=== PATIENT | female | born 1945 | race Hispanic/Latino ===

== ENCOUNTER 2022-01-01 05:52 | Day surgery (SDC) | payer OTHER ==
--- NOTE | 2021-12-30 13:23 | RAD REPORT ---
EXAM DESCRIPTION: RAD - Chest Pa And Lat (2 Views) - 12/30/2021 1:08 pm CLINICAL HISTORY: pre op pending mastectomy Chest pain. COMPARISON: No comparisons FINDINGS: The lungs are clear. The heart is upper limit of normal in size. No displaced fractures. IMPRESSION: No acute or concerning finding suspected.
[2021-12-30 13:45] LABS: Potassium 4.2 mmol/L (3.5-5.1)
[2021-12-30 14:05] LABS: Absolute Lymphocytes (CBC) 1.9 K/uL (0.7-4.9); Hematocrit 37.7 % (36.0-45.0); Lymphocytes % 13.6 % (15.3-44.8); MPV 9.7 fL (7.6-11.3); RBC Red Blood Cell Count 4.41 M/uL (3.86-4.86)
[2022-01-01] MEDS ORDERED: NA CHLORIDE 0.9% 1,000 ML ONE ×2 (06:00→12:35)
[2022-01-01] MEDS ORDERED: NA CHLORIDE 0.9% 50 ML ONE (06:00)
[2022-01-01] MEDS ORDERED: CEFAZOLIN SODIUM 1 GM/VIAL ONE (06:00)
[2022-01-01] MEDS ORDERED: BUPIVACAINE 0.25% PF 10 ML VIAL ONE ×2 (07:12→07:23)
[2022-01-01] MEDS ORDERED: dexAMETHasone 10 MG/ML VIAL ONE ×2 (07:13→10:20)
[2022-01-01] MEDS ORDERED: FENTANYL CITR 100 MCG/2 ML ONE (07:13)
[2022-01-01] MEDS ORDERED: LIDOCAINE 1% MPF 5 ML VIAL ONE ×2 (07:13→08:25)
[2022-01-01] MEDS ORDERED: MIDAZOLAM HCL 2 MG/2 ML INJ ONE (07:14)
[2022-01-01] MEDS ORDERED: FENTANYL CITR 250 MCG/5 ML ONE (08:25)
[2022-01-01] MEDS ORDERED: propofoL 200 MG/20 ML VIAL IV ONE (08:25)
[2022-01-01] MEDS ORDERED: ROCURONIUM 50 MG/5 ML VIAL IV ONE (08:25)
[2022-01-01] MEDS ORDERED: METHYLENE BLUE 0.5% 10 ML AMP ONE (08:50)
--- NOTE | 2022-01-01 09:10 | RAD REPORT ---
EXAM DESCRIPTION: NM - Lymphoscintigraphy - 01/01/2022 8:27 am CLINICAL HISTORY: BREAST CA COMPARISON: Chest Pa And Lat (2 Views) dated 12/30/2021 FINDINGS: Preoperative lymphoscintigraphy was performed. Intradermal periareolar injections on the r ight were performed. Approximately 250 uCi of tilmanocept was injected IMPRESSION: Successful preoperative lymphoscintigraphy right breast.
--- NOTE | 2022-01-01 09:20 | RAD REPORT ---
EXAM DESCRIPTION: US - Brst,Preop NL Wire Init w/Guid - 01/01/2022 8:48 am CLINICAL HISTORY: NDL LOC Right breast carcinoma. COMPARISON: No comparisons FINDINGS: Preoperative diagnosis: Right breast carcinoma. Post operative diagnosis: Same. Conscious Sedation: None Fluoroscopy time: None Contrast used: None Estimated blood loss: Minimal The right breast was prepped and draped in the usual sterile fashion. 1% lidocaine was infiltrated in to the subcutaneous tissues for local anesthesia. Real time ultrasound scanning of the right breast d emonstrated 8-9 mm hypoechoic mass 8 o'clock. Under ultrasound guidance, using a Kopan's hookwire, a wire was placed in the lesion. Patient was then sent for surgery. IMPRESSION: Successful ultrasound-guided right breast mass preoperative wire localization.
[2022-01-01] MEDS ORDERED: EPHEDRINE SULF 50 MG/ML VIAL ONE (09:44)
[2022-01-01] MEDS ORDERED: NS 0.9% VIAL 10 ML ONE (09:44)
[2022-01-01] MEDS ORDERED: FUROSEMIDE 20 MG/ 2ML VIAL ONE (10:19)
[2022-01-01] MEDS ORDERED: KETOROLAC 30 MG/ML INJ ONE (10:20)
[2022-01-01] MEDS ORDERED: ONDANSETRON 4 MG/2 ML VIAL ONE (10:57)
[2022-01-01] MEDS ORDERED: Mastisol Adhesive Liq ONE ×2 (10:57→12:24)
[2022-01-01] MEDS ORDERED: GLYCOPYRROLATE 0.2 MG/ML SYR ONE (11:13)
--- NOTE | 2022-01-01 12:26 | P.OP ---
Recreation Program Coordinator: Analilia DUMONT Preoperative diagnosis: Right breast cancer Postoperative diagnosis: Same Primary procedure: Needle localization and right breast mastectomy with sentinel node biopsy Secondary procedure: Left breast simple mastectomy Anesthesia: General Estimated blood loss: 50 cc Specimen: Right sentinel node, right breast and left breast Findings: [place] node was negative for metastatic disease, margins were free Operative Technique: Patient brought to the OR and placed in supine position. General anesthesia beg un. Under sterile condition methylene blue injected on the right nipple areolar complex. The right breast was massaged. And then patient was prepped and draped in usual sterile fashion. [place] node localizing device was utilized to isolate the sentinel node in the right axilla. A 3 cm in the right axilla was made. Deep to the subcutaneous tissue, to lymph nodes with appropriate counts were excised and sent to pathology for frozen section. Bleeding was controlled with cautery, 3-0 silk ties and vascular clips. Frozen section revealed that patient had no evidence of metastatic disease. Then 3-0 chromic was was used to close the axillary wound. An ellipse of skin incision was made over the right breast to include the nipple areolar complex as well as the needle localization wire. Then flaps were created. The superior flap was to the clavicle, the medial flap was to the sternal border, inferior flap was to the insertion of the rectus abdominis muscle and lateral flap was to the anterior border of the latissimus dorsi muscle. All breast tissue was removed off of the pectoralis fascia. Breast was labeled appropriately sent to frozen section for margin check. The frozen s ection revealed margins to be free with the closest margins being 2 cm. Entire wound irrigated and bleeding controlled with cautery, 3-0 chromic and vascular clips. #10 flat KRISTINE drain was placed under the flap and secured with 3-0 nylon. The wound was closed with 2-0 chromic and 3-0 chromic sutures. Sterile dressing was applied and the exact same operation occurred on the left breast with a #10 flat KRISTINE drain as well. Sterile dressing applied and patient awakened taken to recovery in good general condition. Drain(s): KRISTINE drain Transferred to: Recovery Room Condition: Good
[2022-01-01] MEDS ORDERED: HYDROCODONE/APAP 7.5/325 MG TAB PO PRN (12:30)
[2022-01-01] MEDS: HYDROMORPHONE HCL 1 MG/ML INJ ONE ×4 (13:07→13:28)
[2022-01-01] MEDS ORDERED: HYDROCODONE/APAP 7.5/325 MG TAB ONE (14:17)
[2022-01-01 15:31] VITALS: TEMP 97.8
[2022-01-01 15:37] VITALS: BP 110/83; O2SAT 94
== END 2022-01-01 15:00 | disposition home or self-care (01) ==
LOC: OR 05:52
PROVIDERS: ATTEND Surgery
PROC: 0HTT0ZZ Resection of Right Breast, Open Approach (ICD-10-PCS; principal; 2022-01-01 09:00)
PROC: 0HTU0ZZ Resection of Left Breast, Open Approach (ICD-10-PCS; 2022-01-01 09:00)
DX: C50.511 Malignant neoplasm of lower-outer quadrant of right female breast (principal); Z17.0 Estrogen receptor positive status [ER+]; Z20.822 Contact with and (suspected) exposure to COVID-19; I10 Essential (primary) hypertension; E11.9 Type 2 diabetes mellitus without complications
CPT/HCPCS: 93005; 85025; 80048; 36415; 82947 ×2; 88307 ×2; 71046; 19285; 78195; 19307; 19303; U0003; J2704; J2250; J3010 ×2; J1100 ×2; J1170 ×2; J7030 ×2; J2405; J0690; A9520; J1940

== ENCOUNTER 2022-01-31 12:04 | Observation (INO) | payer OTHER ==
--- OUTSIDE RECORDS SUMMARY | 2022-01-31 12:08 | XMS REPORT | Continuity of Care Document ---
:1945 Author Organization [facility] t Address [address] [place] [address] Dr. Lisa. [address] [place] [address] Care Team Providers Name Role Phone [email or web address] Attending Clinician Unavailable Jonah Attending Clinician Unavailable BINDAL Attending Clinician Unavailable Richie_Vikas Attending Clinician Unavailable MOISES Attending Clinician Unavailable URMILA Attending Clinician Unavailable Susan, P Attending Clinician Unavailable Susan, P Attending Clinician Unavailable [email or web address] Admitting Clinician Unavailable Jonah Admitting Clinician Unavailable Hailey Admitting Clinician Unavailable MOISES Admitting Clinician Unavailable URMILA Admitting Clinician Unavailable Payers Payer Name Policy Type Policy Number Effective Date Expiration Date S eric [facility] [id number] (PPO) [facility] [id number] 2016 [facility] (MEDICAID 00:00:00 HMO) [facility] MEDICARE [id number] COMPLETE (MEDICARE REPLACEMENT HMO) [facility] - [id number] [address] [facility] 00:00:00 (MEDICARE REPLACEMENT/ADVANTA GE - HMO) [employer] (MEDICARE [id number] 2021 REPLACEMENT PPO) 00:00:00 [facility] [id number] DH - DUAL (MEDICARE REPLACEMENT HMO) [facility] [id number] 2020 [employer] - 00:00:00 DUAL ELIGIBLE (MEDICARE REPLACEMENT/ADVANTA GE - HMO) [facility] - [id number] MEDICARE SOLUTIONS - MEDICARE COMPLETE (MEDICARE REPLACEMENT PPO) Problems Condition Condition Condition Status Onset Resolution Last Treating Co mments Source Name Details Category Date Date Treatment Clinician Date Malignant Malignant Problem Active [facility] neoplasm Neoplasm 9 da of female of Female 00:00: [facility] [employer] breast Breast 00 al Health Outre[facility] Program Mixed Mixed Problem Active [facility] anxiety Anxiety 9 da and and 00:00: [facility] depressive Depressive 00 al disorder Disorder Health Outreac h Program Chronic Chronic Problem Active [facility] kidney Kidney 9 da disease Disease 00:00: [facility] stage 3 Stage 3 00 al Health [facility] Chronic Chronic Problem Active [facility] low back Low Back 05-28 da pain Pain 00:00: [facility] Type 2 Type 2 Problem Active [facility] diabetes Diabetes - da mellitus Mellitus 00:00: [facility] p without without 00 al complicati Complicati He alth on on Outreac h Program Vitamin D Vitamin D Problem Active [facility] deficiency Deficiency - da 00:00: [facility] Essential Essential Problem Active [facility] hypertensi Hypertensi 1-21 da on on 00:00: [facility] 00 [facility] Hoarse Hoarse Problem Active [facility] Chronic Chronic Problem Active [facility] cough Cough [facility] History of History of Problem Active M [facility] emphysema Emphysema [facility] Allergic Allergic Problem Active [facility] rhinitis Rhinitis [facility] Nasal Nasal Problem Active [facility] obstructio Obstructio da n n Medical Group 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 Medical disease Disease Group 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 Knee [facility] 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 Syndrome da of of Medical shoulder Shoulder Group region Region Allergies, Adverse Reactions, Alerts Allergy Allergy Status Severity Reaction(s) Onset Inactive Treating Comm ents Source Name Type Date Date Clinician Lisinopr Allergy Active [facility] [place] to da substanc Medical e Group PENICILL Allergy Active Anaphylaxis [facility] INS to da substanc Medical e Group penicill Drug Active 9[address] [facility] lisinopr Drug Active 21920 [facility] Social History Smoking Status Start Date Stop Date Source Former Smoker [facility] Medications Ordered Filled Start Stop Current Ordering Indication Dosage Frequency Signature Comments Components Source Medication Medication Date Date Medication? Clinician (SIG) Name Name Alcohol Alcohol No Alcohol [facility] Prep Pads Prep Pads Prep Pads da USE TO TEST USE TO TEST USE TO [facility] BLOOD BLOOD TEST BLOOD al GLUCOSE GLUCOSE GLUCOSE Health FOUR TIMES FOUR TIMES FOUR TIMES Outreac DAILY DAILY DAILY h Program amlodipine amlodipine No amlodipine [facility] 5 mg tablet 5 mg tablet 5 mg d a Take 1 Take 1 tablet [facility] tablet tablet Take 1 al every day every day tablet Hea lth by oral by oral every day Outr eac route. route. by oral h route. Program atorvastati atorvastati No atorvastat [facility] n 20 mg n 20 mg in 20 mg da tablet Take tablet Take tablet [facility] 1 tablet at 1 tablet at Take 1 al bedtime for bedtime for tablet at Health elevated elevated bedtime Outr eac cholesterol cholesterol for h elevated Program cholestero l cetirizine cetirizine No 1 Q1D cetirizine [facility] 10 mg 10 mg 10 mg da tablet Take tablet Take tablet [facility] 1 tablet 1 tablet Take 1 al every day every day tablet Hea lth by oral by oral every day Outr eac route. route. by oral h route. Program cholecalcif cholecalcif No cholecalci [facility] nirav nirav ferol da (vitamin (vitamin (vitamin Epi scop D3) 125 mcg D3) 125 mcg D3) 125 al (5,000 (5,000 mcg (5,000 Healt h unit) unit) unit) Outreac capsule capsule capsule h Take 1 Take 1 Take 1 Program capsule capsule capsule daily for daily for daily for low vitamin low vitamin low D D vitamin D cyclobenzap cyclobenzap No cyclobenza [facility] rine 10 mg rine 10 mg otis 10 da tablet tablet mg tablet [facility] p 1/2-1 1/2-1 1/2-1 al tablet tablet tablet Health twice a day twice a day twice a Outreac for muscle for muscle day for h relaxant relaxant muscle Progr am relaxant Dexilant 60 Dexilant 60 No Dexilant [facility] mg capsule, mg capsule, 60 mg da delayed delayed capsule, [facility] release release delayed al Take 1 Take 1 release Health capsule capsule Take 1 Outreac every day every day capsule h by oral by oral every day Prog tami route. route. by oral route. Easy Easy No Easy [facility] Comfort Comfort Comfort da Insulin Insulin Insulin [facility] p Syringe 1 Syringe 1 Syringe 1 al mL 31 gauge mL 31 gauge mL 31 Health x 5/16" USE x 5/16" USE gauge x Outreac TO INJECT TO INJECT 16" USE h INSULIN INSULIN TO INJECT Prog tami THREE TIMES THREE TIMES INSULIN DAILY DAILY THREE TIMES DAILY Easy Touch Easy Touch No Easy Touch [facility] 31 gauge x 31 gauge x 31 gauge x da 5/16" 5/16" 5/16" [facility] needle needle needle al Health Outreac h Program Easy Touch Easy Touch No Easy Touch [facility] Insulin Insulin Insulin da Syringe 0.3 Syringe 0.3 Syringe [facility] mL 30 gauge mL 30 gauge 0.3 mL 30 al x 5/16" x 5/16" gauge x Health INJECT INJECT 16" Outreac SUBCUTANEOU SUBCUTANEOU INJECT h SLY three SLY three SUBCUTANEO Program times a day times a day USLY three per sliding per sliding times a scale scale day per sliding scale gabapentin gabapentin No gabapentin [facility] 300 mg 300 mg 300 mg da capsule capsule capsule [facility] p Take 1 Take 1 Take 1 al capsule 3 capsule 3 capsule 3 Health times a day times a day times a Outreac by oral by oral day by h route. route. oral Program route. Humulin R Humulin R No Humulin R [facility] Regular Regular Regular da U-100 U-100 U-100 [facility] Insulin 100 Insulin 100 Insulin al unit/mL unit/mL 100 Health injection injection unit/mL Ou treac solution solution injection h Take 15 Take 15 solution Progr am units 3 units 3 Take 15 times a day times a day units 3 by by times a injection injection day by route. route. injection route. hydrocodone hydrocodone No hydrocodon [facility] 7.5 7.5 e 7.5 da mg-acetamin mg-acetamin mg-acetami [facility] ophen 325 ophen 325 nophen 325 al mg tablet mg tablet mg tablet Health TAKE 1 TAKE 1 TAKE 1 Outreac TABLET BY TABLET BY TABLET BY h MOUTH EVERY MOUTH EVERY MOUTH Program 6 HOURS 6 HOURS EVERY 6 NEEDED FOR NEEDED FOR HOURS PAIN PAIN NEEDED FOR PAIN Infinity Infinity No Infinity [facility] Meter Kit Meter Kit Meter Kit da USE TO TEST USE TO TEST USE TO [facility] BLOOD BLOOD TEST BLOOD al GLUCOSE GLUCOSE GLUCOSE Health Outre h Program isosorbide isosorbide No isosorbide [facility] mononitrate mononitrate mononitrat da ER 30 mg ER 30 mg e ER 30 mg E [facility] tablet,exte tablet,exte tablet,ext al nded nded ended Health release 24 release 24 release 24 Outreac hr Take 1 hr Take 1 hr Take 1 h tablet tablet tablet Program every day every day every day by oral by oral by oral route. route. route. lancets 30 lancets 30 No lancets 30 [facility] gauge USE gauge USE gauge USE da TO TEST TO TEST TO TEST [facility] BLOOD BLOOD BLOOD al GLUCOSE GLUCOSE GLUCOSE [facility] FOUR TIMES FOUR TIMES FOUR TIMES Outreac DAILY DAILY DAILY h Program lancing lancing No lancing [facility] device USE device USE device USE da WITH WITH WITH [facility] LANCETS TO LANCETS TO LANCETS TO al TEST BLOOD TEST BLOOD TEST BLOOD Health GLUCOSE GLUCOSE GLUCOSE Outrea c h Program levothyroxi levothyroxi No 1 Q1D levothyrox [facility] ne 100 mcg ne 100 mcg ine 100 da tablet Take tablet Take mcg tablet [facility] 1 tablet 1 tablet Take 1 al every day every day tablet Hea lth by oral by oral every day Outr eac route. route. by oral h route. Program levothyroxi levothyroxi No levothyrox [facility] ne 50 mcg ne 50 mcg ine 50 mcg da tablet tablet tablet [facility] Outreac h Program memantine memantine No memantine [facility] Once daily Once daily Once daily da [facility] Outreac h Program Accu-Chek Accu-Chek No Accu-Chek [facility] FastClix FastClix FastClix da Lancing Lancing Lancing Medica l Device Device Device Group metformin metformin No metformin [facility] 500 mg 500 mg 500 mg da tablet Take tablet Take tablet [facility] 1 tablet 1 tablet Take 1 al every day every day tablet Hea lth by oral by oral every day Outr eac route. route. by oral h route. Program Accu-Chek Accu-Chek No Accu-Chek [facility] Softclix Softclix Softclix da Lancets Lancets Lancets Medica l Group metoprolol metoprolol No metoprolol [facility] tartrate 50 tartrate 50 tartrate da mg tablet mg tablet 50 mg [facility] [employer] Take 1 Take 1 tablet al tablet tablet Take 1 Health every day every day tablet Out reac by oral by oral every day h route. route. by oral Program route. acetaminoph acetaminoph No acetaminop [facility] en 300 en 300 hen 300 da mg-codeine mg-codeine mg-codeine Medical 30 mg 30 mg 30 mg Group tablet tablet tablet montelukast montelukast No montelukas [facility] 10 mg 10 mg t 10 mg da tablet Take tablet Take tablet [facility] 1 tablet 1 tablet Take 1 al every day every day tablet Hea lth by oral by oral every day Outr eac route. route. by oral h route. Program Advair HFA Advair HFA No Advair HFA [facility] 115 mcg-21 115 mcg-21 115 mcg-21 da mcg/actuati mcg/actuati mcg/actuat Medical on aerosol on aerosol ion Lesa up inhaler inhaler aerosol inhaler OneTouch OneTouch No OneTouch [facility] Ultra Blue Ultra Blue Ultra Blue da Test Strip Test Strip Test Strip [facility] USE TO TEST USE TO TEST USE TO al BLOOD BLOOD TEST BLOOD Health GLUCOSE GLUCOSE GLUCOSE Outrea c FOUR TIMES FOUR TIMES FOUR TIMES h DAILY DAILY DAILY Program Advair HFA Advair HFA No Advair HFA [facility] 230 mcg-21 230 mcg-21 230 mcg-21 da mcg/actuati mcg/actuati mcg/actuat Medical on aerosol on aerosol ion Lesa up inhaler inhaler aerosol inhaler oxybutynin oxybutynin No 1 Q1D oxybutynin [facility] chloride 5 chloride 5 chloride 5 da mg tablet mg tablet mg tablet [facility] Take 1 Take 1 Take 1 al tablet tablet tablet Health every day every day every day Outreac by oral by oral by oral h route. route. route. Program albuterol albuterol No albuterol [facility] sulfate sulfate sulfate da 0.63 mg/3 0.63 mg/3 0.63 mg/3 Medical mL solution mL solution mL G roup for for solution nebulizatio nebulizatio for n n nebulizati on oxybutynin oxybutynin No oxybutynin [facility] chloride ER chloride ER chloride da 5 mg 5 mg ER 5 mg [facility] tablet,exte tablet,exte tablet,ext al nded nded ended Health release 24 release 24 release 24 Outreac hr hr hr h Program albuterol albuterol No albuterol [facility] sulfate sulfate sulfate da 1.25 mg/3 1.25 mg/3 1.25 mg/3 Medical mL solution mL solution mL G roup for for solution nebulizatio nebulizatio for n n nebulizati on pantoprazol pantoprazol No pantoprazo [facility] e 40 mg e 40 mg le 40 mg da tablet,nadeem tablet,nadeem tablet,del [facility] yed release yed release ayed a l Take 1 Take 1 release Health tablet by tablet by Take 1 Out reac oral route oral route tablet by h as needed. as needed. oral route Program as needed. albuterol albuterol No albuterol [facility] sulfate 2.5 sulfate 2.5 sulfate da mg/3 mL mg/3 mL 2.5 mg/3 Medic al (0.083 %) (0.083 %) mL (0.083 Group solution solution %) for for solution nebulizatio nebulizatio for n n nebulizati on pharmacist pharmacist No pharmacist [facility] choice choice choice da alcoholprep alcoholprep alcoholpre [facility] pads pads pads pads p pads al pads Health Outreac h Program alcohol alcohol No alcohol [facility] prep pad prep pad prep pad da Medical Group pramipexole pramipexole No pramipexol [facility] 0.5 mg 0.5 mg e 0.5 mg da tablet Take tablet Take tablet [facility] 1 tablet 1 tablet Take 1 al every day every day tablet Hea lth by oral by oral every day Outr eac route at route at by oral h bedtime. bedtime. route at Pro gram bedtime. Alcohol Alcohol No Alcohol [facility] Prep Pads Prep Pads Prep Pads da USE TO TEST USE TO TEST USE TO Medical BLOOD BLOOD TEST BLOOD Group GLUCOSE GLUCOSE GLUCOSE FOUR TIMES FOUR TIMES FOUR TIMES DAILY DAILY DAILY ropinirole ropinirole No ropinirole [facility] 0.25 mg 0.25 mg 0.25 mg da tablet tablet tablet [facility] al Health Outreac h Program alendronate alendronate No alendronat [facility] 70 mg 70 mg e 70 mg da tablet tablet tablet Medical Group sertraline sertraline No 1 Q1D sertraline [facility] 100 mg 100 mg 100 mg da tablet Take tablet Take tablet [facility] 1 tablet 1 tablet Take 1 al every day every day tablet Hea lth by oral by oral every day Outr eac route. route. by oral h route. Program amlodipine amlodipine No amlodipine [facility] 5 mg tablet 5 mg tablet 5 mg d a TAKE 1 TAKE 1 tablet Medical TABLET BY TABLET BY TAKE 1 Lesa up MOUTH EVERY MOUTH EVERY TABLET BY DAY DAY MOUTH EVERY DAY Spiriva Spiriva No Spiriva [facility] Respimat 1 Respimat 1 Respimat 1 da inhalation inhalation inhalation [facility] twice a day twice a day twice a al day Health Outreac h Program atorvastati atorvastati No atorvastat [facility] n 20 mg n 20 mg in 20 mg da tablet tablet tablet Medical Group Spiriva Spiriva No Spiriva [facility] [facility] Respimat Respimat Respimat da 2.5 2.5 2.5 [facility] mcg/actuati mcg/actuati mcg/actuat al on solution on solution ion H ealth for for solution Outreac inhalation inhalation for h inhalation Program azithromyci azithromyci No azithromyc [place] n 250 mg n 250 mg in 250 mg da tablet tablet tablet Medical Group Toujeo Max Toujeo Max No 90unit( Q1D Toujeo Max [facility] U-300 U-300 s) U-300 da SoloStar SoloStar SoloStar Epi scop 300 unit/mL 300 unit/mL 300 a l (3 mL) (3 mL) unit/mL (3 Healt h subcutaneou subcutaneou mL) O [facility] s insulin s insulin subcutaneo h pen Inject pen Inject us insulin Program 90 units 90 units pen Inject every day every day 90 units by by every day subcutaneou subcutaneou by s route in s route in subcutaneo the the us route morning. morning. in the morning. BD Veo BD Veo No BD Veo [facility] Insulin Insulin Insulin da Syringe Syringe Syringe Medica l Ultra-Fine Ultra-Fine Ultra-Fine Group 1/2 mL 31 1/2 mL 31 1/2 mL 31 gauge x gauge x gauge x " " " Madison Wallace No Madison [facility] SoloStar SoloStar SoloStar da U-300 U-300 U-300 [facility] Insulin 300 Insulin 300 Insulin al unit/mL unit/mL 300 Health (1.5 mL) (1.5 mL) unit/mL Outr eac subcutaneou subcutaneou (1.5 mL) h s pen s pen subcutaneo Program us pen benzonatate benzonatate No benzonatat [facility] 100 mg 100 mg e 100 mg da capsule capsule capsule Medica l Take 1 Take 1 Take 1 Group capsule 3 capsule 3 capsule 3 times a day times a day times a by oral by oral day by route. route. oral route. Tradjenta 5 Tradjenta 5 No Tradjenta [facility] mg tablet mg tablet 5 mg da Take 1 Take 1 tablet [facility] tablet tablet Take 1 al every day every day tablet Hea lth by oral by oral every day Outr eac route. route. by oral h route. Program cefdinir cefdinir No cefdinir [facility] 300 mg 300 mg 300 mg da capsule capsule capsule Medica l Group tramadol 50 tramadol 50 No tramadol [facility] mg tablet mg tablet 50 mg da TAKE 1 TAKE 1 tablet [facility] TABLET BY TABLET BY TAKE 1 al MOUTH EVERY MOUTH EVERY TABLET BY [facility] 12 HOURS 12 HOURS MOUTH Outreac NEEDED FOR NEEDED FOR EVERY 12 h PAIN PAIN HOURS Program NEEDED FOR PAIN cetirizine cetirizine No cetirizine [facility] 10 mg 10 mg 10 mg da tablet tablet tablet Medical Group trazodone trazodone No trazodone [facility] 100 mg 100 mg 100 mg da tablet tablet tablet [facility] al Health Outreac h Program clindamycin clindamycin No clindamyci [facility] HCl 300 mg HCl 300 mg n HCl 300 da capsule capsule mg capsule Med ical Group Victoza Victoza No Victoza [facility] 3-Yury 0.6 3-Yury 0.6 3-Yury 0.6 da mg/0.1 mL mg/0.1 mL mg/0.1 mL [facility] (18 mg/3 (18 mg/3 (18 mg/3 al mL) mL) mL) Health subcutaneou subcutaneou subcutaneo Outreac s pen s pen us pen h injector injector injector Pro gram comfort ez comfort ez No comfort ez [facility] mis mis mis da [id number] Medica l Group cyclobenzap cyclobenzap No cyclobenza [place] rine 10 mg rine 10 mg otis 10 da tablet Take tablet Take mg tablet Medical 1 tablet 3 1 tablet 3 Take 1 G roup times a day times a day tablet 3 by oral by oral times a route. route. day by oral route. Dexilant 60 Dexilant 60 No Dexilant [facility] mg capsule, mg capsule, 60 mg da delayed delayed capsule, Medic al release release delayed Group release donepezil donepezil No donepezil [facility] 10 mg 10 mg 10 mg da tablet tablet tablet Medical Group donepezil 5 donepezil 5 No donepezil [facility] mg tablet mg tablet 5 mg da tablet Medical Group Easy Easy No Easy [facility] Comfort Comfort Comfort da Insulin Insulin Insulin Medica l Syringe 1 Syringe 1 Syringe 1 Group mL 31 gauge mL 31 gauge mL 31 x 5/16" USE x 5/16" USE gauge x TO INJECT TO INJECT 516" USE INSULIN INSULIN TO INJECT THREE TIMES THREE TIMES INSULIN DAILY DAILY THREE TIMES DAILY Easy Touch Easy Touch No Easy Touch [facility] 31 gauge x 31 gauge x 31 gauge x da 5/16" 5/16" 5/16" Medical needle needle needle Group Easy Touch Easy Touch No Easy Touch [facility] Insulin Insulin Insulin da Syringe 0.3 Syringe 0.3 Syringe Medical mL 30 gauge mL 30 gauge 0.3 mL 30 Group x 5/16" x 5/16" gauge x INJECT INJECT 5/16" SUBCUTANEOU SUBCUTANEOU INJECT SLY three SLY three SUBCUTANEO times a day times a day USLY three per sliding per sliding times a scale scale day per sliding scale ergocalcife ergocalcife No ergocalcif [place] rol rol nirav da (vitamin (vitamin (vitamin Med ical D2) 1,250 D2) 1,250 D2) 1,250 Group mcg (50,000 mcg (50,000 mcg unit) unit) (50,000 capsule capsule unit) capsule fenofibrate fenofibrate No fenofibrat [facility] 160 mg 160 mg e 160 mg da tablet tablet tablet Medical Group fluticasone fluticasone No fluticason [facility] 500 500 e 500 da mcg-salmete mcg-salmete mcg-salmet Medical rol 50 rol 50 nirav 50 Group mcg/dose mcg/dose mcg/dose blistr blistr blistr powdr for powdr for powdr for inhalation inhalation inhalation fluticasone fluticasone No fluticason [facility] propionate propionate e da 50 50 propionate Medical mcg/actuati mcg/actuati 50 G roup on nasal on nasal mcg/actuat spray,suspe spray,suspe ion nasal nsion nsion spray,susp ension furosemide furosemide No furosemide [facility] 40 mg 40 mg 40 mg da tablet tablet tablet Medical Group gabapentin gabapentin No gabapentin [place] 100 mg 100 mg 100 mg da capsule capsule capsule Medica l Group gabapentin gabapentin No gabapentin [place] 300 mg 300 mg 300 mg da capsule capsule capsule Medica l Group Humulin R Humulin R No Humulin R [place] Regular Regular Regular da U-100 U-100 U-100 Medical Insulin 100 Insulin 100 Insulin Group unit/mL unit/mL 100 injection injection unit/mL solution solution injection solution hydrocortis hydrocortis No hydrocorti [place] one 2.5 % one 2.5 % sone 2.5 % da lotion lotion lotion Medical Group hydrocortis hydrocortis No hydrocorti [place] one one sone da valerate valerate valerate Med ical 0.2 % 0.2 % 0.2 % Group topical topical topical cream cream cream ibuprofen ibuprofen No ibuprofen [facility] 400 mg 400 mg 400 mg da tablet tablet tablet Medical Group ibuprofen ibuprofen No ibuprofen [facility] 800 mg 800 mg 800 mg da tablet tablet tablet Medical Group Infinity Infinity No Infinity [facility] Test strips Test strips Test d a USE TO TEST USE TO TEST strips USE Medical BLOOD BLOOD TO TEST Group GLUCOSE GLUCOSE BLOOD FOUR TIMES FOUR TIMES GLUCOSE DAILY DAILY FOUR TIMES DAILY ipratropium ipratropium No ipratropiu [facility] bromide bromide m bromide da 0.02 % 0.02 % 0.02 % Medical solution solution solution Lesa up for for for inhalation inhalation inhalation isosorbide isosorbide No isosorbide [facility] mononitrate mononitrate mononitrat da ER 30 mg ER 30 mg e ER 30 mg M edical tablet,exte tablet,exte tablet,ext Group nded nded ended release 24 release 24 release 24 hr TAKE 1 hr TAKE 1 hr TAKE 1 TABLET BY TABLET BY TABLET BY MOUTH EVERY MOUTH EVERY MOUTH DAY DAY EVERY DAY Janumet 50 Janumet 50 No Janumet 50 [facility] mg-1,000 mg mg-1,000 mg mg-1,000 da tablet tablet mg tablet Medica l Group Januvia 50 Januvia 50 No Januvia 50 [facility] mg tablet mg tablet mg tablet da Medical Group ketoconazol ketoconazol No ketoconazo [place] e 2 % e 2 % le 2 % da shampoo shampoo shampoo Medica l Group lancets 30 lancets 30 No lancets 30 [facility] gauge USE gauge USE gauge USE da TO TEST TO TEST TO TEST Medica l BLOOD BLOOD BLOOD Group GLUCOSE GLUCOSE GLUCOSE FOUR TIMES FOUR TIMES FOUR TIMES DAILY DAILY DAILY Lantus Lantus No Lantus [place] Solostar Solostar Solostar da U-100 U-100 U-100 Medical Insulin 100 Insulin 100 Insulin Group unit/mL (3 unit/mL (3 100 mL) mL) unit/mL (3 subcutaneou subcutaneou mL) s pen s pen subcutaneo us pen levofloxaci levofloxaci No levofloxac [place] n 500 mg n 500 mg in 500 mg da tablet tablet tablet Medical Group levofloxaci levofloxaci No levofloxac [place] n 750 mg n 750 mg in 750 mg da tablet tablet tablet Medical Group levothyroxi levothyroxi No levothyrox [place] ne 100 mcg ne 100 mcg ine 100 da tablet tablet mcg tablet Medic al Group levothyroxi levothyroxi No levothyrox [place] ne 50 mcg ne 50 mcg ine 50 mcg da tablet TAKE tablet TAKE tablet Medical (1) TABLET (1) TABLET TAKE (1) Group BY MOUTH BY MOUTH TABLET BY ONCE DAILY ONCE DAILY MOUTH ONCE DAILY lidocaine 5 lidocaine 5 No lidocaine [facility] % topical % topical 5 % da ointment ointment topical Medi tyree ointment Group lidocaine-p lidocaine-p No lidocaine- [place] rilocaine rilocaine prilocaine da 2.5 %-2.5 % 2.5 %-2.5 % 2.5 %-2.5 Medical topical topical % topical Grou p cream cream cream loratadine loratadine No loratadine [facility] 10 mg 10 mg 10 mg da tablet tablet tablet Medical Group Lyrica 50 Lyrica 50 No Lyrica 50 [facility] mg capsule mg capsule mg capsule da Medical Group meclizine meclizine No meclizine [place] 25 mg 25 mg 25 mg da tablet tablet tablet Medical Group meloxicam meloxicam No meloxicam [facility] 7.5 mg 7.5 mg 7.5 mg da tablet tablet tablet Medical Group memantine memantine No memantine [facility] 10 mg 10 mg 10 mg da tablet tablet tablet Medical Group metformin metformin No metformin [facility] 500 mg 500 mg 500 mg da tablet tablet tablet Medical Group methylpredn methylpredn No methylpred [place] isolone 4 isolone 4 nisolone 4 da mg tablets mg tablets mg tablets Medical in a dose in a dose in a dose Group pack pack pack metoprolol metoprolol No metoprolol [facility] tartrate 50 tartrate 50 tartrate da mg tablet mg tablet 50 mg Medi tyree TAKE ONE TAKE ONE tablet Group (1) TABLET (1) TABLET TAKE ONE BY MOUTH BY MOUTH (1) TABLET TWICE DAILY TWICE DAILY BY MOUTH TWICE DAILY montelukast montelukast No montelukas [place] 10 mg 10 mg t 10 mg da tablet tablet tablet Medical Group Narcan 4 Narcan 4 No Narcan 4 [facility] mg/actuatio mg/actuatio mg/actuati da n nasal n nasal on nasal Medic al spray spray spray Group ADMINISTER ADMINISTER ADMINISTER A SINGLE A SINGLE A SINGLE SPRAY SPRAY SPRAY INTRANASALL INTRANASALL INTRANASAL Y INTO ONE Y INTO ONE LY INTO NOSTRIL. NOSTRIL. ONE CALL 911. CALL 911. NOSTRIL. MAY REPEAT JANUARY REPEAT CALL 911. X 1. X 1. JANUARY REPEAT X 1. Nexium 40 Nexium 40 No Nexium 40 [facility] mg mg mg da capsule,del capsule,del capsule,de Medical ayed ayed layed Group release release release Novolog Novolog No Novolog [facility] Flexpen Flexpen Flexpen da U-100 U-100 U-100 Medical Insulin Insulin Insulin Group aspart 100 aspart 100 aspart 100 unit/mL (3 unit/mL (3 unit/mL (3 mL) mL) mL) subcutaneou subcutaneou subcutaneo s s us Nystop Nystop No Nystop [place] 100,000 100,000 100,000 da unit/gram unit/gram unit/gram Medical topical topical topical Group powder powder powder omega-3 omega-3 No omega-3 [facility] acid ethyl acid ethyl acid ethyl da esters 1 esters 1 esters 1 Med ical gram gram gram Group capsule capsule capsule ondansetron ondansetron No ondansetro [place] HCl 4 mg HCl 4 mg n HCl 4 mg d a tablet tablet tablet Medical Group OneTouch OneTouch No OneTouch [place] Ultra Blue Ultra Blue Ultra Blue da Test Strip Test Strip Test Strip Medical Group OneTouch OneTouch No OneTouch [place] Ultra Ultra Ultra da Control Control Control Medica l solution solution solution Lesa up OneTouch OneTouch No OneTouch [place] UltraMini UltraMini UltraMini da kit kit kit Medical Group OneTouch OneTouch No OneTouch [place] [facility] Verio Meter Verio Meter Verio da Meter Medical Group oxiconazole oxiconazole No oxiconazol [place] 1 % topical 1 % topical e 1 % da cream cream topical Medical cream Group oxybutynin oxybutynin No oxybutynin [place] chloride 5 chloride 5 chloride 5 da mg tablet mg tablet mg tablet Medical Group oxybutynin oxybutynin No oxybutynin [place] chloride ER chloride ER chloride da 10 mg 10 mg ER 10 mg Medical tablet,exte tablet,exte tablet,ext Group nded nded ended release 24 release 24 release 24 hr hr hr oxybutynin oxybutynin No oxybutynin [place] chloride ER chloride ER chloride da 5 mg 5 mg ER 5 mg Medical tablet,exte tablet,exte tablet,ext Group nded nded ended release 24 release 24 release 24 hr hr hr pantoprazol pantoprazol No pantoprazo [place] e 40 mg e 40 mg le 40 mg da tablet,nadeem tablet,nadeem tablet,del Medical yed release yed release ayed G roup TAKE 1 TAKE 1 release TABLET BY TABLET BY TAKE 1 MOUTH EVERY MOUTH EVERY TABLET BY DAY BEFORE DAY BEFORE MOUTH BREAKFAST BREAKFAST EVERY DAY *DO NOT *DO NOT BEFORE CRUSH OR CRUSH OR BREAKFAST CHEW OR CHEW OR *DO NOT SPLIT* SPLIT* CRUSH OR CHEW OR SPLIT* pen needles pen needles No pen M [facility] mis mis needles da [id number] mis Medical [id number] Group pharmacist pharmacist No pharmacist [place] choice choice choice da alcoholprep alcoholprep alcoholpre Medical pads pads pads pads p pads Group pads pharmacist pharmacist No pharmacist [place] choice choice choice da ultra thin ultra thin ultra thin Medical lancet s lancet s lancet s Lesa up 31g misc 31g misc 31g misc pramipexole pramipexole No pramipexol [facility] 0.5 mg 0.5 mg e 0.5 mg da tablet tablet tablet Medical Group prednisone prednisone No prednisone [place] 20 mg 20 mg 20 mg da tablet tablet tablet Medical Group pregabalin pregabalin No pregabalin [facility] 100 mg 100 mg 100 mg da capsule capsule capsule Medica l Take 1 Take 1 Take 1 Group capsule 3 capsule 3 capsule 3 times a day times a day times a by oral by oral day by route. route. oral route. Prevnar 13 Prevnar 13 No Prevnar 13 [place] (PF) 0.5 mL (PF) 0.5 mL (PF) 0.5 da intramuscul intramuscul mL M edical ar syringe ar syringe intramuscu Group lar syringe Proventil Proventil No Proventil [place] HFA 90 HFA 90 HFA 90 da mcg/actuati mcg/actuati mcg/actuat Medical on aerosol on aerosol ion Lesa up inhaler inhaler aerosol inhaler ropinirole ropinirole No ropinirole [place] 0.25 mg 0.25 mg 0.25 mg da tablet tablet tablet Medical Group sertraline sertraline No sertraline [place] 100 mg 100 mg 100 mg da tablet tablet tablet Medical Group simple diag simple diag No simple [place] mis mis diag mis da lancing lancing lancing Medica l Group simple simple No simple [facility] diagnostics diagnostics diagnostic da lancing lancing s lancing Medi tyree device device device Group misc misc misc simvastatin simvastatin No simvastati [place] 10 mg 10 mg n 10 mg da tablet tablet tablet Medical Group Spiriva Spiriva No Spiriva [place] [facility] Respimat Respimat Respimat da 2.5 2.5 2.5 Medical mcg/actuati mcg/actuati mcg/actuat Group on solution on solution ion for for solution inhalation inhalation for inhalation tizanidine tizanidine No tizanidine [place] 4 mg tablet 4 mg tablet 4 mg d a tablet Medical Group Toubianca Hansenubianca No Toubianca [place] SoloStar SoloStar SoloStar da U-300 U-300 U-300 Medical Insulin 300 Insulin 300 Insulin Group unit/mL unit/mL 300 (1.5 mL) (1.5 mL) unit/mL subcutaneou subcutaneou (1.5 mL) s pen s pen subcutaneo us pen Tradjenta 5 Tradjenta 5 No Tradjenta [place] mg tablet mg tablet 5 mg da tablet Medical Group tramadol 50 tramadol 50 No tramadol [place] mg tablet mg tablet 50 mg da TAKE 1 TAKE 1 tablet Medical TABLET BY TABLET BY TAKE 1 Lesa up MOUTH EVERY MOUTH EVERY TABLET BY 12 HOURS 12 HOURS MOUTH NEEDED FOR NEEDED FOR EVERY 12 PAIN PAIN HOURS NEEDED FOR PAIN trazodone trazodone No trazodone [place] 100 mg 100 mg 100 mg da tablet TAKE tablet TAKE tablet Medical 1 TABLET BY 1 TABLET BY TAKE 1 Group MOUTH MOUTH TABLET BY NIGHTLY NIGHTLY MOUTH NIGHTLY trazodone trazodone No trazodone [place] 50 mg 50 mg 50 mg da tablet tablet tablet Medical Group Trelegy Trelegy No Trelegy [place] [facility] Ellipta 200 Ellipta 200 Ellipta da mcg-62.5 mcg-62.5 200 Medical mcg-25 mcg mcg-25 mcg mcg-62.5 Group powder for powder for mcg-25 mcg inhalation inhalation powder for inhalation ultra thin ultra thin No ultra thin [place] mis 31g mis 31g mis 31g da Medical Group Unifine Unifine No Unifine [facility] [facility] Pentips 32 Pentips 32 Pentips 32 da gauge x gauge x gauge x Medica l " " " Group needle needle needle valacyclovi valacyclovi No valacyclov [place] r 1 gram r 1 gram ir 1 gram da tablet tablet tablet Medical Group Victoza Victoza No Victoza [place] 3-Yury 0.6 3-Yury 0.6 3-Yury 0.6 da mg/0.1 mL mg/0.1 mL mg/0.1 mL Medical (18 mg/3 (18 mg/3 (18 mg/3 Lesa up mL) mL) mL) subcutaneou subcutaneou subcutaneo s pen s pen us pen injector injector injector Immunizations Ordered Immunization Filled Immunization Date Status Commen ts Source Name Name zoster live zoster live 2019-10-20 Completed [facility]:00:[facility] Vital Signs Vital Name Observation Time Observation Value Comments Source BP Diastolic 2021-12-29 00:00:00 80 mm[Hg] [facility] Height 2021-12-29 00:00:00 66 [in_i] [facility] BMI (Body Mass 2021-12-29 00:00:00 31.6 kg/m2 [facility] Medical Index) Group BP Systolic 2021-12-29 00:00:00 130 mm[Hg] [facility] Body Weight 2021-12-29 00:00:00 196 [lb_av] [facility] BP Diastolic 2021-07-07 00:00:00 80 mm[Hg] [facility] Height 2021-07-07 00:00:00 66 [in_i] [facility] BMI (Body Mass 2021-07-07 00:00:00 31.5 kg/m2 [facility] Medical Index) Group BP Systolic 2021-07-07 00:00:00 130 mm[Hg] [facility] Body Weight 2021-07-07 00:00:00 195 [lb_av] [facility] BP Diastolic 2021-01-13 00:00:00 80 mm[Hg] [facility] Height 2021-01-13 00:00:00 66 [in_i] [facility] BMI (Body Mass 2021-01-13 00:00:00 31.5 kg/m2 [facility] Medical Index) Group BP Systolic 2021-01-13 00:00:00 130 mm[Hg] [facility] Body Weight 2021-01-13 00:00:00 195 [lb_av] [facility] BP Diastolic 2020-06-12 00:00:00 76 mm[Hg] [facility] Height 2020-06-12 00:00:00 66 [in_i] [facility] BMI (Body Mass 2020-06-12 00:00:00 30.8 kg/m2 [facility] [employer] [facility] Index) [facility] BP Systolic 2020-06-12 00:00:00 118 mm[Hg] [facility] Body Weight 2020-06-12 00:00:00 3052.8 [oz_av] [facility] BP Diastolic 2020-05-27 00:00:00 90 mm[Hg] [facility] Height 2020-05-27 00:00:00 66 [in_i] [facility] BMI (Body Mass 2020-05-27 00:00:00 30.6 kg/m2 [facility] [employer] [facility] Index) [facility] BP Systolic 2020-05-27 00:00:00 146 mm[Hg] [facility] Body Weight 2020-05-27 00:00:00 3036.8 [oz_av] [facility] [employer] [facility] Height/Length 2021-10-13 12:36:56 170.18 cm Measured Weight Dosing 2021-10-13 12:36:56 83.914 kg Procedures Procedure Date / Time Performing Clinician Source Performed XR, knee, 1 or 2 view 2021-01-13 00:00:00 [facility] XR, shoulder, 2 or more 2021-01-13 00:00:00 [facility] unlisted imaging order 2020-06-12 00:00:00 Addisonag orda [facility] MRI, lumbar spine, w/o 2020-05-28 00:00:00 Hakan freeman [facility] Colonoscopy W/lesion 2017-09-08 00:00:00 Estephania [facility] Egd Biopsy 2017-09-08 00:00:00 Rosanna Me dical Single/multiple Group Excision of Colon [facility] Total Hysterectomy [facility] Lumpectomy of Breast [facility] Colonoscopy W/lesion [facility] Knee Arthroscopy/surgery [facility] Encounters Start End Encounter Admission Attending Care Care Encounter Source Date/Time Date/Time Type Type Clinicians Facility Department ID 2022-01-25 2022-01-25 Outpatient GC_WPSA_Awa PRIV PRIV [id number] NPI:[id number] 12:39:00 12:39:00 n_R [id number] 2021-12-29 2021-12-29 Outpatient cMcDonald [facility] [place] 02:39:00 02:39:00 0405 [facility] 2021-12-29 2021-12-29 Outpatient cMcDonald [facility] [place] 02:39:00 02:39:00 0412 [facility] 2021-12-29 2021-12-29 Outpatient cMcDonald [facility] [place] 02:39:00 02:39:00 0428 [facility] 2021-12-29 [facility] [place] [id number] 00:00:00 00:00:00 Discovery otto Black MD: [address] [facility] [address], [place] [address] , Ph. 2021-12-28 2021-12-28 Outpatient GC_WPSA_Awa PRIV PRIV [id number] NPI:[id number] 12:55:00 12:55:00 n_R [id number] 2021-11-30 2021-11-30 Outpatient GC_WPSA_Awa PRIV PRIV [id number] NPI:[id number] 01:03:00 01:03:00 n_R [id number] 2021-09-11 2021-09-11 Outpatient cMcDonald [facility] [place] 02:10:00 02:10:00 1223 [facility] 2021-09-11 2021-09-11 Outpatient cMcDonald [facility] [place] 02:10:00 02:10:00 0322 [facility] 2021-08-14 2021-08-14 Outpatient cMcDonald [facility] [place] 04:04:00 04:04:00 1119 [facility] 2021-08-03 2021-08-03 Outpatient BINDAL, [facility] [id number] [address] [place] 00:00:00 00:00:00 MELANI [address] 2021-08-03 2021-08-03 Outpatient BINDAL, [facility] [id number] [address] [place] 00:00:00 00:00:00 MELANI [address] 2021-08-03 2021-08-03 Outpatient BINDAL, [facility] [id number] [address] [place] 00:00:00 00:00:00 MELANI [address] 2021-07-07 2021-07-07 Outpatient cMcDonald [facility] [place] 01:05:00 01:05:00 1012 [facility] 2021-07-07 2021-07-07 Outpatient cMcDonald [facility] [place] 01:05:00 01:05:00 1019 [facility] 2021-07-07 2021-07-07 [facility] [place] - [id number] [facility] 00:00:00 00:00:00 Discovery otto Black MD: [address] [place] [address] [address], [place] [address] , Ph. 2021-06-19 2021-06-19 Outpatient BINDAL, [facility] [id number] [address] [place] 00:00:00 00:00:00 MELANI [address] 2021-01-13 2021-01-13 Outpatient cMcDonald [facility] [place] 04:57:00 04:57:00 0420 [facility] 2021-01-13 2021-01-13 Outpatient cMcDonald [facility] [place] 04:57:00 04:57:00 0425 [facility] 2021-01-13 2021-01-13 [facility] [place] - [id number] [facility] 00:00:00 00:00:00 Discovery otto Black MD: [address] [place] [address] [address], [place] [address] , Ph. 2020-11-07 2020-11-07 Outpatient Young_J MMG MMG [id number] [place] 10:32:00 10:32:00 0212 [facility] 2020-11-07 2020-11-07 Outpatient Young_J MMG MMG [id number] 021 [place] 10:32:00 10:32:00 0304 [facility] 2020-11-07 2020-11-07 Outpatient Young_J MMG MM[facility] [id number] 021 [place] 10:32:00 10:32:00 0306 [facility] 2020-11-07 2020-11-07 Outpatient Young_J MMG MM[facility] [id number] 021 [place] 10:32:00 10:32:00 0401 Medical Group 2020-06-12 2020-06-12 Outpatient NEESE_LOPEZ STEVE [facility] [id number] [place] 02:20:00 02:20:00 [facility] 2020-06-12 2020-06-12 Lopez STEVE [place] - [id number] [place] 00:00:00 00:00:00 HANDY Gonzalez: Rosanna jacinto [address] [facility] [employer] [facility] al A, Medical [facility] [place] [facility] [address] [facility] , Ph. 2020-06-11 2020-06-11 Outpatient NEESE_LOPEZ STEVE [facility] [id number] [place] 11:09:00 11:09:00 0916 [facility] 2020-05-30 2020-05-30 Outpatient NEESE_LOPEZ STEVE [facility] [id number] [place] 11:55:00 11:55:00 0904 [facility] 2020-05-27 2020-05-27 Outpatient NEESE_LOPEZ STEVE [facility] [id number] [place] 06:29:00 06:29:00 0901 [facility] 2020-05-27 2020-05-27 Lopez ST[place] - [id number] [place] 00:00:00 00:00:00 HANDY Gonzalez: Rosanna jacinto [address] [facility] [employer] [address] [facility] al A, [facility] [place] [address] Issac stoddard , Ph. 2019-10-16 2019-10-16 Outpatient FERGUSON_JO MEHOP VAHOP 940 [place] 05:16:00 05:16:00 HN [id number] [facility] 2019-10-16 2019-10-16 Outpatient FERGUSON_JO VAHOP VAHOP 940 [place] 05:16:00 05:16:00 HN 0303 [facility] 2019-10-16 2019-10-16 Outpatient FERGUSON_JO VAHOP VAHOP 940 [place] 05:16:00 05:16:00 HN 0121 [facility] 2019-10-16 2019-10-16 Outpatient FERGUSON_JO VAHOP [facility] 940 [place] 05:16:00 05:16:00 HN 0211 [facility] 2019-10-16 2019-10-16 Lopez Antoine [facility] [place] - [id number] [place] 00:00:00 00:00:00 HANDY Gonzalez: Rosanna jacinto [address] [facility] [employer] [address] [facility] al A, [facility] [place] [address] Issac stoddard , Ph. 2019-02-23 2019-02-23 Outpatient 3 Benito Davis [facility] TYREE [id number] 09:53:00 14:08:00 Susan, [facility] 2018-08-15 2018-08-15 Outpatient Young_J MMG MMG [id number] 021 [place] 10:20:00 10:20:00 0203 [facility] 2018-08-15 2018-08-15 Outpatient Young_J MMG MMG [id number] 021 [place] 10:20:00 10:20:00 0210 [facility] 2018-08-15 2018-08-15 Outpatient Young_J MMG MMG [id number] 020 [place] 10:20:00 10:20:00 0709 [facility] Results Test Description Test Time Test Comments Results Result Comments Source Prothrombin Time and INR 2019-02-23 11:30:19 Test Item Value Reference Range Interpretation Comme nts Prothrombin Time (test code = Prothrombin Time) 12.6 seconds 9.8-13 .4 INR (test code = INR) 1.1 ratio 0.6-1.2 Partial Thromboplastin [id number] 11:30:19 Test Item Value Reference Range Interpretation Comments Partial Thromboplastin Time 30.50 seconds 24.39-37.25 (test code = Partial Thromboplastin Time) Comprehensive Metabolic [id number] 11:16:55 Test Item Value Reference Range Interpretation Comments Sodium Level (test code = Sodium 140.0 mmol/L 135.0-145.0 Level) Potassium Level (test code = 4.4 mmol/L 3.5-5.1 Potassium Level) Chloride Level (test code = 102 mmol/L 98-105 Chloride Level) CO2 (test code = CO2) 27 mmol/L 22-29 Anion Gap (test code = Anion 11 mmol/L 7-16 Gap) BUN (test code = BUN) 25.70 mg/dL 8.00-23.00 H Creatinine Level (test code = 1.40 mg/dL 0.50-0.90 H Creatinine Level) BUN/Creat Ratio (test code = 18 N BUN/Creat Ratio) Glucose Level (test code = 98 mg/dL 70-115 Glucose Level) Calcium Level (test code = 9.4 mg/dL 8.3-10.5 Calcium Level) Alk Phos (test code = Alk Phos) 79 U/L 35-104 Bilirubin Total (test code = 0.3 mg/dL 0.1-0.9 Bilirubin Total) Albumin Level (test code = 4.1 g/dL 3.5-5.2 Albumin Level) Protein Total (test code = 7.0 g/dL 6.4-8.3 Protein Total) ALT (test code = ALT) 19 U/L 1-33 AST (test code = AST) 21 U/L 1-32 Globulin (test code = Globulin) 2.9 g/dL 2.9-3.1 A/G Ratio (test code = A/G 1.4 ratio N Ratio) Comprehensive Metabolic [id number] 11:16:55 Test Item Value Reference Range Interpretation Comments Sodium Level (test 140.0 mmol/L 135.0-145.0 code = Sodium Level) Potassium Level 4.4 mmol/L 3.5-5.1 (test code = Potassium Level) Chloride Level (test 102 mmol/L 98-105 code = Chloride Level) CO2 (test code = 27 mmol/L 22-29 CO2) Anion Gap (test code 11 mmol/L 7-16 = Anion Gap) BUN (test code = 25.70 mg/dL 8.00-23.00 H BUN) Creatinine Level 1.40 mg/dL 0.50-0.90 H (test code = Creatinine Level) BUN/Creat Ratio 18 N (test code = BUN/Creat Ratio) Glucose Level (test 98 mg/dL 70-115 code = Glucose Level) Calcium Level (test 9.4 mg/dL 8.3-10.5 code = Calcium Level) Alk Phos (test code 79 U/L 35-104 = Alk Phos) Bilirubin Total 0.3 mg/dL 0.1-0.9 (test code = Bilirubin Total) Albumin Level (test 4.1 g/dL 3.5-5.2 code = Albumin Level) Protein Total (test 7.0 g/dL 6.4-8.3 code = Protein Total) ALT (test code = 19 U/L 1-33 ALT) AST (test code = 21 U/L 1-32 AST) Globulin (test code 2.9 g/dL 2.9-3.1 = Globulin) A/G Ratio (test code 1.4 ratio N = A/G Ratio) eGFR AA (test code = 45 mL/min/1.73 N eGFR (estimated eGFR AA) m2 Glomerular Filtration Rate ) is an estimated va lue, calculated from the patient's serum creatinine usin g the MDRD equation. It is NOT the patient 's actual GFR. The eGFR provides a more clinically usef ul measure of kidn ey disease than se rum creatinine alone.This calculation janelle es sex and race in to account, if the information is provided. If th e race is not provided, and t he patient is -Aneta n, multiply by 1.2 12. If sex is not provided, and t he patient is fema le, multiply by 0.7 42. Results for pat ients <18 years of ag e have not been validated by [facility] MDRD study and should be interpreted wit h caution. eGFR R esult Interpretation: eGFR > or = 60 is in the Normal RangeeGF R < 60 may mean kid kain diseaseeGFR < 1 5 may mean kidney failure Rang es recommended by the National Kidney Foundation, http://nkdep.ni h.gov eGFR Non-AA (test 37.07 N eGFR (ada mated code = eGFR Non-AA) mL/min/1.73 m2 Glomer ular Filtration Rate ) is an estimated va lue, calculated from the patient's serum creatinine usin g the MDRD equation. It is NOT the patient 's actual GFR. The eGFR provides a more clinically usef ul measure of kidn ey disease than se rum creatinine alone.This calculation janelle es sex and race in to account, if the information is provided. If th e race is not provided, and t he patient is -Aneta n, multiply by 1.2 12. If sex is not provided, and t he patient is fema le, multiply by 0.7 42. Results for pat ients <18 years of ag e have not been validated by [facility] MDRD study and should be interpreted wit h caution. eGFR R esult Interpretation: eGFR > or = 60 is in the Normal RangeeGF R < 60 may mean kid kain diseaseeGFR < 1 5 may mean kidney failure Rang es recommended by the National Kidney Foundation, http://nkdep.ni h.gov Comprehensive Metabolic [id number] 11:16:55 Test Item Value Reference Range Interpretation Comments Sodium Level (test 140.0 mmol/L 135.0-145.0 code = Sodium Level) Potassium Level 4.4 mmol/L 3.5-5.1 (test code = Potassium Level) Chloride Level (test 102 mmol/L 98-105 code = Chloride Level) CO2 (test code = 27 mmol/L 22-29 CO2) Anion Gap (test code 11 mmol/L 7-16 = Anion Gap) BUN (test code = 25.70 mg/dL 8.00-23.00 H BUN) Creatinine Level 1.40 mg/dL 0.50-0.90 H (test code = Creatinine Level) BUN/Creat Ratio 18 N (test code = BUN/Creat Ratio) Glucose Level (test 98 mg/dL 70-115 code = Glucose Level) Calcium Level (test 9.4 mg/dL 8.3-10.5 code = Calcium Level) Alk Phos (test code 79 U/L 35-104 = Alk Phos) Bilirubin Total 0.3 mg/dL 0.1-0.9 (test code = Bilirubin Total) Albumin Level (test 4.1 g/dL 3.5-5.2 code = Albumin Level) Protein Total (test 7.0 g/dL 6.4-8.3 code = Protein Total) ALT (test code = 19 U/L 1-33 ALT) AST (test code = 21 U/L 1-32 AST) Globulin (test code 2.9 g/dL 2.9-3.1 = Globulin) A/G Ratio (test code 1.4 ratio N = A/G Ratio) eGFR AA (test code = 45 mL/min/1.73 N eGFR (estimated eGFR AA) m2 Glomerular Filtration Rate ) is an estimated va lue, calculated from the patient's serum creatinine usin g the MDRD equation. It is NOT the patient 's actual GFR. The eGFR provides a more clinically usef ul measure of kidn ey disease than se rum creatinine alone.This calculation janelle es sex and race in to account, if the information is provided. If th e race is not provided, and t he patient is -Antea n, multiply by 1.2 12. If sex is not provided, and t he patient is fema le, multiply by 0.7 42. Results for pat ients <18 years of ag e have not been validated by th e MDRD study and should be interpreted wit h caution. eGFR R esult Interpretation: eGFR > or = 60 is in the Normal RangeeGF R < 60 may mean kid kain diseaseeGFR < 1 5 may mean kidney failure Rang es recommended by the National Kidney Foundation, http://nkdep.ni h.gov eGFR Non-AA (test 37.07 N eGFR (ada mated code = eGFR Non-AA) mL/min/1.73 m2 Glomer ular Filtration Rate ) is an estimated va lue, calculated from the patient's serum creatinine usin g the MDRD equation. It is NOT the patient 's actual GFR. The eGFR provides a more clinically usef ul measure of kidn ey disease than se rum creatinine alone.This calculation janelle es sex and race in to account, if the information is provided. If th e race is not provided, and t he patient is -Aneta n, multiply by 1.2 12. If sex is not provided, and t he patient is fema le, multiply by 0.7 42. Results for pat ients <18 years of ag e have not been validated by th e MDRD study and should be interpreted wit h caution. eGFR R esult Interpretation: eGFR > or = 60 is in the Normal RangeeGF R < 60 may mean kid kain diseaseeGFR < 1 5 may mean kidney failure Rang es recommended by the National Kidney Foundation, http://nkdep.ni h.gov Complete Blood Count with [id number] 10:56:57 Test Item Value Reference Range Interpretation Comments WBC (test code = WBC) 6.5 x10 4.4-10.5 RBC (test code = RBC) 3.91 x10 3.75-5.20 Hgb (test code = Hgb) 11.4 g/dL 12.2-14.8 L Hct (test code = Hct) 34.5 % 36.5-44.4 L MCV (test code = MCV) 88.20 fL 80.00-100.00 MCHC (test code = 33.00 g/dL 32.00-37.50 MCHC) MCH (test code = MCH) 29.2 pg 27.0-32.5 RDW CV (test code = 14.3 % 11.5-14.5 RDW CV) Platelets (test code = 208.0 x10 140.0-440.0 Platelets) MPV (test code = MPV) 10.5 fL N Slide Review (test Auto Auto Result cr eated by code = Slide Review) [id number]_ SLIDE_REV_AUTO nRBC (test code = 0 N nRBC) NRBC Abs (test code = 0.00 x10 N NRBC Abs) IPF (test code = IPF) 0 % N Automated [id number] 10:56:57 Test Item Value Reference Range Interpretation Comments Neutro Auto (test code = Neutro 52.3 % 36.0-70.0 Auto) Lymph Auto (test code = Lymph Auto) 30.5 % 12.0-44.0 Mora Auto (test code = Mora Auto) 9.4 % 0.0-11.0 Eos, Auto (test code = Eos, Auto) 6.8 % 0.0-7.0 Basophil Auto (test code = Basophil 0.5 % 0.0-2.0 Auto) Neutro Absolute (test code = Neutro 3.4 x10 1.6-7.4 Absolute) Lymph Absolute (test code = Lymph 1.97 x10 .50-4.60 Absolute) Mora Absolute (test code = Mora .61 x10 .00-1.20 Absolute) Eos Absolute (test code = Eos 0.44 x10 0.00-0.74 Absolute) Baso Absolute (test code = Baso 0.03 x10 0.00-0.21 Absolute) IG [id number] 10:56:57 Test Item Value Reference Range Interpretation Comments IG (test code = IG) 0.5 % 0.0-5.0 IG Abs (test code = IG Abs) 0 x10 N
[2022-01-31] MEDS ORDERED: MORPHINE 2 MG/ML SYR ONE (13:06)
[2022-01-31] MEDS ORDERED: ASPIRIN 81 MG CHEWABLE TABLET ONE (13:06)
[2022-01-31 13:13] LABS: Absolute Lymphocytes (CBC) 1.8 K/uL (0.7-4.9); Hematocrit 31.3 % (36.0-45.0); Lymphocytes % 29.5 % (15.3-44.8); MPV 8.5 fL (7.6-11.3)
[2022-01-31 13:15] LABS: Protime INR 1.07
[2022-01-31 13:36] LABS: Bilirubin Direct 0.1 mg/dL (0-0.2); Bilirubin Total 0.2 mg/dL (0.2-1.0); Protein, Total 6.6 g/dL (6.4-8.2); Troponin High Sensitivity 6.3 pg/mL (<58.9)
[2022-01-31] MEDS ORDERED: MORPHINE 4 MG/ML SYR ONE (14:12)
--- NOTE | 2022-01-31 15:13 | EDPHYS ---
Physician Documentation [facility] Name: Lupe Mccray Age: 76 yrs Sex: Female : 1945 Arrival Date: 01/31/2022 Time: 12:07 Bed 6 Private MD: ED Physician Lars Richards HPI: 01/31 12:35 This 76 yrs old Female presents to ER via Ambulatory with complaints of Chest cp Pain. 12:35 Onset: The symptoms/episode began/occurred 1 week(s) ago. cp 12:35 The patient or guardian reports chest pain that is located primarily in the anterior cp chest wall, left. The chest pain is described as sharp. 12:35 Associated signs and symptoms: Pertinent positives: shortness of breath, Pertinent cp negatives: abdominal pain, cough, diaphoresis, lower extremity pain, lower extremity swelling, syncope, vomiting. Duration: The patient or guardian reports multiple episodes, that wax and wane. Modifying factors: the symptoms are aggravated by activity. Patient reports history of bilateral mastectomy surgery performed by DR Carney about 1 month ago. Concerned that chest drains were removed too early as she is concerned about swelling. Historical: - Allergies: 12:30 PENICILLINS; ph 12:30 Lisinopril; ph - PMHx: 12:30 Hypertensive disorder; Diabetes mellitus; cancer, breast; ph - PSHx: 12:30 bilateral mastectomy; ph - Immunization history:: Adult Immunizations up to date. - Social history:: Smoking status: Patient denies any tobacco usage or history of. ROS: 12:40 Constitutional: Negative for body aches, chills, fever, poor PO intake. cp 12:40 Eyes: Negative for injury, pain, redness, and discharge. cp 12:40 Cardiovascular: Positive for chest pain, Negative for edema, palpitations. cp 12:40 ENT: Negative for drainage from ear(s), ear pain, sore throat, difficulty swallowing, cp difficulty handling secretions. 12:40 Respiratory: Positive for shortness of breath, Negative for cough, wheezing. 12:40 Abdomen/GI: Negative for abdominal pain, nausea, vomiting, and diarrhea. 12:40 Back: Negative for pain at rest, pain with movement. 12:40 : Negative for urinary symptoms. 12:40 Skin: Negative for cellulitis, rash. 12:40 Neuro: Negative for altered mental status, dizziness, headache, syncope, weakness. 12:40 All other systems are negative. Exam: 12:45 Constitutional: The patient appears in no acute distress, alert, awake, cp non-diaphoretic, non-toxic, well developed, well nourished. 12:45 Head/Face: Normocephalic, atraumatic. cp 12:45 Eyes: Periorbital structures: appear normal, Conjunctiva: normal, no exudate, no injection, Sclera: no appreciated abnormality, Lids and lashes: appear normal, bilaterally. 12:45 ENT: External ear(s): are unremarkable, Nose: is normal, Mouth: Lips: moist, Oral mucosa: pink and intact, moist, Posterior pharynx: Airway: no evidence of obstruction, patent. 12:45 Neck: ROM/movement: is normal, is supple, without pain, no range of motions limitations, no nuchal rigidity. 12:45 Chest/axilla: Inspection: surgical scars appear to be healing well, mild swelling noted scar line with mild tenderness to palpation. no drainage from area. 12:45 Cardiovascular: Rate: normal, Rhythm: regular, Edema: is not appreciated, JVD: is not appreciated. 12:45 Respiratory: the patient does not display signs of respiratory distress, Respirations: normal, no use of accessory muscles, no retractions, labored breathing, is not present, Breath sounds: are clear throughout, no decreased breath sounds, no stridor, no wheezing. 12:45 Abdomen/GI: Inspection: abdomen appears normal, Bowel sounds: active, all quadrants, Palpation: abdomen is soft and non-tender, in all quadrants. 12:45 Back: pain, is absent, ROM is normal. 12:45 Skin: cellulitis, is not appreciated, no rash present. 12:45 Neuro: Orientation: to person, place \\T\\ time. Mentation: is normal, Motor: moves all fours, strength is normal, Sensation: is normal, Gait: is steady, at a normal pace, without difficulty. 13:05 ECG was reviewed by the Attending Physician. cp Vital Signs: 12:29 BP 165 / 88; Pulse 72; Resp 18; Temp 97.9; Pulse Ox 99% on R/A; Weight 83.46 kg; Height ph 5 ft. 6 in. (167.64 cm); 13:00 BP 136 / 77; Pulse 61; Resp 18; Pulse Ox 97% ; chou 20:11 BP 139 / 74; Pulse 61; Resp 18; Pulse Ox 98% on R/A; lg3 12:29 Body Mass Index 29.70 (83.46 kg, 167.64 cm) ph MDM: 12:24 Patient medically screened. cp 13:00 Differential diagnosis: acute myocardial infarction, acute pericarditis, chest wall cp pain, pleurisy, pneumonia, pneumothorax, pulmonary embolus. 14:00 Data reviewed: vital signs, nurses notes, lab test result(s), EKG, radiologic studies, cp plain films. 14:00 Test interpretation: by ED physician or midlevel provider: ECG, plain radiologic cp studies. 15:05 Counseling: I had a detailed discussion with the patient and/or guardian regarding: the cp historical points, exam findings, and any diagnostic results supporting the discharge/admit diagnosis, lab results, radiology results, the need for further work-up and treatment in the hospital. 15:05 Physician consultation: Stacey Herrera MD was called at 15:05, was contacted at 15:05, regarding admission, to the telemetry unit. patient's condition, would like further tests performed, CT scan chest w/o contrast. ED course: peripheral IV initially obtained infiltrated with administration of IV contrast. Will admit for VQ scan to r/o pulmonary embolism. 01/31 12:31 Order name: Basic Metabolic Panel; Complete Time: 13:45 cp 01/31 13:45 Interpretation: Normal except: CL 111; GFR 50. cp 01/31 12:31 Order name: CBC with Diff; Complete Time: 13:32 cp 01/31 13:32 Interpretation: Normal except: RBC 3.70; HGB 10.8; HCT 31.3. cp 01/31 12:31 Order name: LFT's; Complete Time: 13:45 cp 01/31 13:45 Interpretation: Normal except: AST 10; ALB 3.0; GLOB 3.6; A/G 0.8. cp 01/31 12:31 Order name: Magnesium; Complete Time: 13:45 cp 01/31 12:31 Order name: NT PRO-BNP; Complete Time: 13:45 cp 01/31 12:31 Order name: PT-INR; Complete Time: 13:32 cp 01/31 12:31 Order name: Troponin HS; Complete Time: 13:45 cp / 13:45 Interpretation: Troponin HS 6.3; Reviewed. cp 01/31 15:22 Order name: Lipid Profile EDMS 01/31 15:22 Order name: Lipid Profile EDMS 01/31 15:24 Order name: CBC with Automated Diff EDMS 01/31 12:31 Order name: XRAY Chest (1 view) cp 05/ 15:11 Order name: CT Chest Wo Con cp 05 15:15 Order name: Thorax Wo Con EDMS 01/31 15:22 Order name: Echo with Doppler EDMS 01/31 15:22 Order name: Echo with Doppler EDMS 01/31 15:23 Order name: Vent Perfusion VQ Scan EDMS 01/31 15:23 Order name: Vent Perfusion VQ Scan EDMS 01/31 15:24 Order name: Comprehensive Metabolic Panel EDMS 01/31 15:24 Order name: D-Dimer EDMS 01/31 15:24 Order name: Troponin High Sensitivity EDMS 01/31 15:24 Order name: Troponin High Sensitivity EDMS 01/31 15:24 Order name: Troponin High Sensitivity EDMS 01/31 15:33 Order name: SARS-COV-2 RT PCR (Document "Date of Onset" if Symptomatic) eb 01/31 12:31 Order name: EKG; Complete Time: 12:32 cp 01/31 12:31 Order name: Cardiac monitoring; Complete Time: 13:06 cp 01/31 12:31 Order name: EKG - Nurse/Tech; Complete Time: 13:06 cp 01/31 12:31 Order name: IV Saline Lock; Complete Time: 13:06 cp 01/31 12:31 Order name: Labs collected and sent; Complete Time: 13:06 cp 01/31 12:31 Order name: O2 Per Protocol; Complete Time: 13:06 cp 01/31 12:31 Order name: O2 Sat Monitoring; Complete Time: 13:06 cp 01/31 15:22 Order name: CONS Physician Consult EDMS 01/31 15:22 Order name: Heart Healthy; Complete Time: 20:22 EDMS 08 15:23 Order name: CONS Physician Consult EDMS EC:05 Rate is 65 beats/min. Rhythm is regular. MN interval is normal. QRS interval is cp prolonged at 102 msec. QT interval is normal. T waves are Inverted in lead aVR. Interpreted by me. Reviewed by me. Administered Medications: 13:05 Drug: Aspirin Chewable Tablet 324 mg Route: PO; ww 20:22 Follow up: Response: No adverse reaction lg3 13:15 Drug: morphine 2 mg Route: IVP; Site: right antecubital; chou 13:16 Follow up: Response: No adverse reaction chou 13:15 Drug: morphine 2 mg Route: IVP; Site: right antecubital; chou Disposition Summary: 01/31/22 15:12 Hospitalization Ordered Hospitalization Status: Observation cp Provider: Stacey Herrera cp Location: Telemetry/MedSurg (observation) cp Condition: Fair cp Problem: new cp Symptoms: have improved cp Bed/Room Type: Standard cp Room Assignment: 206(01/31/22 18:35) eb Diagnosis - Chest pain, unspecified cp Forms: - Medication Reconciliation Form cp - SBAR form cp Signatures: Dispatcher [employer] EDMS Yanet Colvin RN RN Lars Leon PA PA cp Valeria Jameson Whitney RN RN Claudia Huynh RN RN Sanjuanita Goodwin RN lg3 Corrections: (The following items were deleted from the chart) 15:05 12:55 Chest For Pe Angio ordered. EDMS EDMS 15:22 15:22 Basic Metabolic Panel ordered. EDMS EDMS 15:22 15:22 Basic Metabolic Panel ordered. EDMS EDMS 15:22 15:22 CBC with Automated Diff ordered. EDMS EDMS 15:22 15:22 CBC with Automated Diff ordered. EDMS EDMS 18:35 15:12 cp eb
--- NOTE | 2022-01-31 15:13 | ER ---
Nurse's Notes [facility] Name: Lupe Mccray Age: 76 yrs Sex: Female : 1945 Arrival Date: 01/31/2022 Time: 12:07 Bed 6 Private MD: Diagnosis: Chest pain, unspecified Presentation: 01/31 12:29 Chief complaint: Patient states: Jeff mastectomy approx 1 month ago, drains removed 1 ph week ago, reports that she feels like the area is swelling and painful, also reports sharp L sided chest pain x 1 week. Coronavirus screen: Vaccine status: Patient reports receiving the 2nd dose of the covid vaccine. Ebola Screen: No symptoms or risks identified at this time. Initial Sepsis Screen: Does the patient meet any 2 criteria? No. Patient's initial sepsis screen is negative. Does the patient have a suspected source of infection? No. Patient's initial sepsis screen is negative. Risk Assessment: Do you want to hurt yourself or someone else? Patient reports no desire to harm self or others. Onset of symptoms was January 31, 2022. 12:29 Method Of Arrival: Ambulatory ph 12:29 Acuity: JESSICA 3 ph Triage Assessment: 12:31 General: Appears in no apparent distress. Behavior is calm, cooperative, appropriate ph for age, Denies fever, chills. Pain: Complains of pain in anterior aspect of right upper chest, anterior aspect of left upper chest and left breast. Neuro: Dias Agitation-Sedation Scale (RASS): 0 - Alert and Calm. Cardiovascular: Reports chest pain, Chest pain is located in left anterior chest wall. Derm: Skin is healthy with good turgor, Skin is pink, warm \T\ dry. Musculoskeletal: Circulation, motion, and sensation intact. Range of motion: intact in all extremities. Historical: - Allergies: 12:30 PENICILLINS; ph 12:30 Lisinopril; ph - PMHx: 12:30 Hypertensive disorder; Diabetes mellitus; cancer, breast; ph - PSHx: 12:30 bilateral mastectomy; ph - Immunization history:: Adult Immunizations up to date. - Social history:: Smoking status: Patient denies any tobacco usage or history of. Screenin:00 Abuse screen: Denies threats or abuse. Denies injuries from another. Nutritional chou screening: No deficits noted. Tuberculosis screening: No symptoms or risk factors identified. Fall Risk IV access (20 points). Assessment: 13:00 Pain: Complains of pain in chest Pain does not radiate. Pain began gradually. chou 20:10 General: Appears in no apparent distress. comfortable, Behavior is calm, cooperative, lg3 appropriate for age. Pain: Complains of pain in left breast. Neuro: No deficits noted. Dias Agitation-Sedation Scale (RASS): 0 - Alert and Calm Level of Consciousness is awake, alert, obeys commands, Oriented to person, place, time, situation. Cardiovascular: No deficits noted. Capillary refill < 3 seconds Clubbing of nail beds is absent Patient's skin is warm and dry. Respiratory: No deficits noted. Airway is patent Trachea midline Respiratory effort is even, unlabored, Respiratory pattern is regular, symmetrical. GI: No deficits noted. No signs and/or symptoms were reported involving the gastrointestinal system. : No deficits noted. No signs and/or symptoms were reported regarding the genitourinary system. EENT: No deficits noted. No signs and/or symptoms were reported regarding the EENT system. Derm: Reports increased swelling to left breast region. Musculoskeletal: No deficits noted. No signs and/or symptoms reported regarding the musculoskeletal system. Capillary refill < 3 seconds, Range of motion: intact in all extremities. Vital Signs: 12:29 BP 165 / 88; Pulse 72; Resp 18; Temp 97.9; Pulse Ox 99% on R/A; Weight 83.46 kg; Height ph 5 ft. 6 in. (167.64 cm); 13:00 BP 136 / 77; Pulse 61; Resp 18; Pulse Ox 97% ; chou 20:11 BP 139 / 74; Pulse 61; Resp 18; Pulse Ox 98% on R/A; lg3 12:29 Body Mass Index 29.70 (83.46 kg, 167.64 cm) ph ED Course: 12:07 Patient arrived in ED. rg4 12:23 Lars Leon PA is PHCP. cp 12:23 Lars Richards MD is Attending Physician. cp 12:30 Triage completed. ph 12:31 Arm band placed on Patient placed in an exam room, on a stretcher, on cardiac rehabilitation specialist, ph on pulse oximetry. 13:00 Claudia Huynh, RN is Primary Nurse. chou 13:00 Patient has correct armband on for positive identification. Bed in low position. chou bus driver/monitor on. Pulse ox on. NIBP on. 13:00 No provider procedures requiring assistance completed. Inserted saline lock: 20 gauge chou in right antecubital area, using aseptic technique. Patient maintains SpO2 saturation greater than 95% on room air. 13:22 XRAY Chest (1 view) In Process Unspecified. EDMS 15:07 Inserted saline lock: 18 gauge in right EJ, using aseptic technique. rac IV removed. chou 15:12 Stacey Herrera MD is Hospitalizing Provider. cp 19:20 Primary Nurse role handed off by Claudia Huynh, RN mw2 20:10 Sanjuanita London, SOLIS is Primary Nurse. lg3 20:21 Troponin High Sensitivity Sent. lg3 20:21 CBC with Automated Diff Sent. lg3 20:21 Comprehensive Metabolic Panel Sent. lg3 20:21 D-Dimer Sent. lg3 20:21 Troponin High Sensitivity Sent. lg3 Administered Medications: 13:05 Drug: Aspirin Chewable Tablet 324 mg Route: PO; ww 20:22 Follow up: Response: No adverse reaction lg3 13:15 Drug: morphine 2 mg Route: IVP; Site: right antecubital; chou 13:16 Follow up: Response: No adverse reaction chou 13:15 Drug: morphine 2 mg Route: IVP; Site: right antecubital; chou Outcome: 15:12 Decision to Hospitalize by Provider. cp 21:14 Admitted to Med/surg accompanied by tech, room 206, Report called to Hernán lg3 21:14 Condition: stable 21:14 Instructed on the need for admit. 21:22 Patient left the ED. lg3 Signatures: Dispatcher [employer] EDMS Yanet Colvin, RN RN ph Lars Leon PA PA cp Garcia, Rubi rg4 Heaven Car mw2 Sanjuanita London RN RN lg3 Shelley Valdes RN RN Claudia Huynh RN RN chou
[2022-01-31] MEDS ORDERED: ACETAMINOPHEN 500 MG TAB PO PRN (15:17)
--- NOTE | 2022-01-31 16:47 | RAD REPORT ---
EXAM DESCRIPTION: Ronak Single View01/31/2022 1:20 pm CLINICAL HISTORY: Chest pain COMPARISON: 2020 FINDINGS: The lungs appear clear of acute infiltrate. The heart is normal size IMPRESSION: No acute abnormalities displayed
--- NOTE | 2022-01-31 16:47 | RAD REPORT ---
EXAM DESCRIPTION: CT - Thorax Wo Con - 01/31/2022 4:37 pm CLINICAL HISTORY: sob COMPARISON: none TECHNIQUE: Computed axial tomography of the chest was obtained. Contrast was not requested. All CT scans are performed using dose optimization technique as appropriate and may include automated exposure control or mA/KV adjustment according to patient size. FINDINGS: The evaluation of mediastinum, quintin and vessels is limited secondary to lack of IV contras t administration. The lungs are clear. No mediastinal or hilar lymphadenopathy is seen. Coronary arterial calcifications. Bilateral mastectomy. 15 x 3 centimeter fluid collection left anterior subcutaneous chest. Small flui d collection right anterior subcutaneous chest A pleural effusion is not present. IMPRESSION: 15 x 3 centimeter fluid collection left anterior subcutaneous chest probably a subacute hematoma or seroma.
[2022-01-31] MEDS: SERTRALINE HCL 100 MG TAB PO SCH (21:49)
[2022-01-31] MEDS: MEMANTINE HCL 10 MG TABLET PO SCH (21:49)
[2022-01-31] MEDS: METOPROLOL TAR 50 MG TAB PO SCH (21:49)
[2022-01-31] MEDS: TRAMADOL HCL 50 MG TAB PO PRN (21:54)
[2022-02-01] MEDS ORDERED: MORPHINE 2 MG/ML SYR IV ONE (00:09)
[2022-02-01 02:13] VITALS: BMI 29.7
--- NOTE | 2022-02-01 04:20 | P.HP ---
Certification for Inpatient Patient admitted to: Observation With expected LOS: <2 Midnights Patient will require the following post-hospital care: None Practitioner: I am a practitioner with admitting privileges, knowledge of patient current condition, hospital course, and medical plan of care. Services: Services provided to patient in accordance with Admission requirements found in Title 42 Section 412.3 of the Code of Federal Regulations Patient History Date of Service: 01/31/22 Reason for admission: Chest pain rule out acute coronary syndrome History of Present Illness: Patient is a 76-year-old female who came into the hospital with chest discomfort. Patient had a mastectomy performed few weeks ago. She has been doing well since the mastectomy, but she did develop a little bit of swelling. She states she is having some tenderness in the chest so she came into the hospital for further evaluation. She is from [place], but she gets most of her medical care at our facility. Patient was going to get a CT PE protocol but her IV blew out. She will get a VQ scan in the morning. She will be ruled out for acute coronary syndrome. We will get general surgery consultation in the morning as well. Allergies Penicillins Allergy (Severe, Verified 01/01/22 08:39) Swelling all over lisinopril Allergy (Verified 01/01/22 08:39) Coughing non-stop Home Medications: Alendronate Sodium [Fosamax] 70 mg PO DIRECTED 12/30/21 Amlodipine Besylate 5 mg PO DAILY 12/30/21 Atorvastatin Calcium [Lipitor*] 20 mg PO DAILY 12/30/21 Dexlansoprazole [Dexilant] 60 mg PO DAILY 12/30/21 Donepezil HCl [Aricept] 10 mg PO DAILY 12/30/21 Fluticasone/Umeclidin/Vilanter [Trelegy Ellipta 200-62.5-25] 1 each IH DAILY 12/30/21 Furosemide [Lasix] 40 mg PO DAILY 12/30/21 Gabapentin 300 mg PO TID 12/30/21 Insulin Aspart [Novolog Flexpen] 15 unit SQ ACHS 12/30/21 Insulin Detemir [Levemir Flextouch] 90 unit SQ DAILY 12/30/21 Levothyroxine [Synthroid] 100 mcg PO [id number] 12/30/21 Linagliptin [Tradjenta] 5 mg PO DAILY 12/30/21 Liraglutide [Victoza 2-Yury] 1.8 mg SQ DAILY 12/30/21 Memantine HCl 10 mg PO BEDTIME 12/30/21 Metformin ER [Glucophage ER*] 500 mg PO DAILY 12/30/21 Metoprolol Tartrate [Lopressor] 50 mg PO BID 12/30/21 Pregabalin [Lyrica] 100 mg PO TID 12/30/21 Sertraline [Zoloft] 100 mg PO BEDTIME 12/30/21 Tizanidine HCl [Zanaflex] 4 mg PO PRN PRN 12/30/21 Tramadol HCl [Ultram] 50 mg PO PRN PRN 12/30/21 - Past Medical/Surgical History Has patient received pneumonia vaccine in the past: Yes Diabetic: Yes -: COPD -: sleep apnea -: HTN -: hypothyroidism -: neuropathy -: DM II -: colon surgery -: hysterectomy -: tonsillectomy -: mastectomy december 2021 - Family History Father Family History: Reviewed- Non-Contributory - Social History Smoking Status: Former smoker Alcohol use: No CD- Drugs: No Caffeine use: Yes Place of Residence: Home Review of Systems 10-point ROS is otherwise unremarkable Physical Examination - Vital Signs Temperature: 97.3 F Blood Pressure: 135/65 Pulse: 62 Respirations: 17 Pulse Ox (%): 98 - Physical Exam General: Alert, In no apparent distress, Oriented x3 HEENT: Atraumatic, PERRLA, Mucous membr. moist/pink, EOMI, Sclerae nonicteric Neck: Supple, 2+ carotid pulse no bruit, No LAD, Without JVD or thyroid abnormality Respiratory: Clear to auscultation bilaterally, Normal air movement Cardiovascular: Regular rate/rhythm, Normal S1 S2 Gastrointestinal: Normal bowel sounds, Soft and benign, Non-distended, No tenderness Musculoskeletal: No clubbing, No swelling, Tenderness Integumentary: No rashes Neurological: Normal gait, Normal speech, Normal strength at 5/5 x4 extr, Normal tone, Sensation intact, Cranial nerves 3-12 intact, Normal affect Lymphatics: No axilla or inguinal lymphadenopathy - Studies Laboratory Data (last 24 hrs) 01/31/22 13:02: PT 11.8, INR 1.07 01/31/22 13:02: WBC 6.3, Hgb 10.8 L, Hct 31.3 L, Plt Count 192 01/31/22 13:02: Sodium 141, Potassium 4.0, BUN 17, Creatinine 1.07, Glucose 86, Magnesium 2.0, Total Bilirubin 0.2, AST 10 L, ALT 23, Alkaline Phosphatase 55 Assessment & Plan - Problems (Diagnosis) (1) Chest pain, rule out acute myocardial infarction Current Visit: Yes Status: Acute (2) Breast cancer Current Visit: Yes Status: Acute (3) Hypertension Current Visit: Yes Status: Acute (4) Type 2 diabetes mellitus Current Visit: Yes Status: Acute (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 Current Visit: Yes Status: Acute - Plan -High-sensitivity troponin -Cardiology consultation -Echocardiogram pending -VQ scan pending -General surgery consultation for seroma which will probably just be monitored -Work-up for other etiologies of cardiac chest pain if troponins remain negative -Lipid profile -[employer] regarding modifying risk for cardiac disease Discharge Plan: Home Plan to discharge in: 24 Hours - Advance Directives Does patient have a Living Will: No Does patient have a Durable POA for Healthcare: No - Code Status/Comfort Care Code Status Assessed: Yes Code Status: Full Code Critical Care: No Time Spent Managing PTS Care (In Minutes): 45
[2022-02-01] MEDS ORDERED: VANCOMYCIN 1 GM in NA CHLORIDE 0.9% 250 ML IVPB SCH (05:00)
[2022-02-01] MEDS: VANCOMYCIN 1.5 GM in NA CHLORIDE 0.9% 500 ML IVPB SCH (05:00)
[2022-02-01] MEDS ORDERED: VANCOMYCIN 500 MG/VIAL ONE (05:32)
[2022-02-01] MEDS ORDERED: VANCOMYCIN 1 GM/VIAL ONE (05:32)
[2022-02-01] MEDS ORDERED: NA CHLORIDE 0.9% 500 ML ONE (05:33)
[2022-02-01] MEDS: LEVOTHYROXINE SOD 0.1 MG TAB PO SCH (05:34)
[2022-02-01] MEDS: METOPROLOL TAR 50 MG TAB PO SCH ×2 (05:34→21:04)
[2022-02-01] MEDS: ROPINIROLE HCL 0.25 MG TAB PO SCH ×3 (05:34→21:05)
[2022-02-01 06:13] LABS: Absolute Lymphocytes (CBC) 1.9 K/uL (0.7-4.9); Hematocrit 34.8 % (36.0-45.0); MPV 8.4 fL (7.6-11.3); RBC Red Blood Cell Count 4.08 M/uL (3.86-4.86)
[2022-02-01 06:40] LABS: Albumin 3.1 g/dL (3.4-5.0); Bilirubin Total 0.3 mg/dL (0.2-1.0); Potassium 3.9 mmol/L (3.5-5.1); Protein, Total 6.9 g/dL (6.4-8.2)
--- NOTE | 2022-02-01 08:43 | P.PN ---
Subjective Date of Service: 02/01/22 Chief Complaint: Chest pain rule out acute coronary syndrome Subjective: No new changes, Improving Physical Examination - Vital Signs Temperature: 97.3 F Blood Pressure: 113/45 Pulse: 61 Respirations: 17 Pulse Ox (%): 98 - Physical Exam General: Alert, Oriented x3 HEENT: Atraumatic, Normocephalic Neck: Supple Respiratory: Normal air movement Cardiovascular: Regular rate/rhythm, Normal S1 S2 Gastrointestinal: Soft and benign - Studies Laboratory Data (last 24 hrs) 01/31/22 13:02: PT 11.8, INR 1.07 01/31/22 13:02: WBC 6.3, Hgb 10.8 L, Hct 31.3 L, Plt Count 192 01/31/22 13:02: Sodium 141, Potassium 4.0, BUN 17, Creatinine 1.07, Glucose 86, Magnesium 2.0, Total Bilirubin 0.2, AST 10 L, ALT 23, Alkaline Phosphatase 55 Assessment And Plan - Plan - Problems (Diagnosis) (1) Chest pain, rule out acute myocardial infarction Current Visit: Yes Status: Acute (2) Breast cancer Current Visit: Yes Status: Acute (3) Hypertension Current Visit: Yes Status: Acute (4) Type 2 diabetes mellitus Current Visit: Yes Status: Acute (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 ACS rule out has been nonverbal. Surgeon has evaluated patient and is of the opinion that her seroma if present may be needing drainage pending multispecialty evaluation and clearance for surgical intervention. Will follow closely. Pending VQ scan to rule out PE. Surgeon following for management of seroma as stated above. Discharge Plan: Home Plan to discharge in: 24 Hours
--- NOTE | 2022-02-01 08:57 | EKG ---
Test Date: 2022-01-31 Test Time: 12:56:09 [employer] Boat Coxswain: PIPPA MEASUREMENT RESULTS: Intervals: Rate: 65 ID: [id number] QRSD: 102 QT: 414 QTc: 430 [place]: P: 41 ID: [id number] QRS: -15 T: 22 INTERPRETIVE STATEMENTS: Normal sinus rhythm Possible Anterior infarct, age undetermined Abnormal ECG Compared to ECG 12/30/2021 11:45:14 Myocardial infarct finding now present Electronically Signed On 02-01-22 08:56:23 CDT by Demario Powell
--- NOTE | 2022-02-01 09:07 | RAD REPORT ---
EXAM DESCRIPTION: NM - Vent Perfusion VQ Scan - 02/01/2022 8:59 am CLINICAL HISTORY: CP r/o ACS/PE COMPARISON: None. TECHNIQUE: The patient was administered approximately 10.4mCi Xenon 133 gas with posterior projectio n inspiration, equilibrium, and washout views obtained. The patient was then administered approximate ly 7.5 MCi Tc-99m SC labeled RBCs followed by standard 8 view protocol. FINDINGS: There is good distribution of the Xenon with no ventilation defects identified. Mild air t rapping is present. . Perfusion images show no defects suspicious for pulmonary emboli. IMPRESSION: Normal V/Q Scan.
[2022-02-01] MEDS: ATORVASTATIN 20 MG TAB PO SCH (09:10)
[2022-02-01] MEDS: ASPIRIN EC 81 MG TAB PO SCH (09:10)
[2022-02-01] MEDS: DONEPEZIL HCL 5 MG TAB PO SCH (09:11)
[2022-02-01] MEDS: ENOXAPARIN 40 MG/0.4 ML SQ SCH (09:11)
[2022-02-01] MEDS: AMLODIPINE 5 MG TAB PO SCH (09:11)
--- NOTE | 2022-02-01 10:07 | P.CNS ---
Date of Consult: 02/01/22 Reason for consult: Left chest pain History of present illness: Patient is a 76-year-old female presented to the emergency room with left chest discomfort. Patient had a bilateral mastectomy about a month ago. Patient had [place] drains removed in our office early last week. Yesterday patient started having increasing pain on the left side. She was seen in the emergency room and is being ruled out for an acute coronary or lung issues. Patient had a CT PE protocol ordered but could not be completed yesterday. Patient is scheduled for VQ scan today. Patient denies any sore throat, headaches, runny nose, cough, dizziness or fever or chills. Review of systems: Otherwise unremarkable Past medical history: COPD, sleep apnea, hypertension, hypothyroidism, neuropathy, type 2 diabetes Past surgical history: Colon surgery, hysterectomy, tonsillectomy, bilateral mastectomy Allergies: Penicillin and lisinopril Social history: Former smoker, and denies drinking alcohol Family history: Noncontributory Vital signs: Stable, afebrile Physical exam: Awake, alert, oriented x3 Head and neck exam: Cranial nerves II through XII grossly within normal limits, no neck masses, no JVD, throat clear and neck supple Chest: Clear, surgical wounds are clean dry and intact, there is a seroma present in the left chest wall and lateral chest as well, appears to be minimal in nature Heart: S1-S2 Abdomen: Soft, nondistended, nontender, positive bowel sounds Extremity: Neurovascularly intact, nontender Neuro: Nonfocal Diagnostic data: Laboratory data essentially within normal limits, CT of the chest shows fluid in the left anterior chest, 15 x 3 cm, most likely a seroma Assessment: Left chest pain, rule out acute coronary syndrome and PE Plan/recommendation: Await cardiology evaluation and V/Q scan results. If those are negative and patient still has significant pain in the left chest, then drainage of the seroma may help alleviate patient's symptoms. We can do that via a small incision and placed a drain in place. After the work-up and consultation have been done, I will discuss management of this case with the hospitalist. We will follow this patient while in the hospital. CC:
[2022-02-01] MEDS: TRAMADOL HCL 50 MG TAB PO PRN (11:53)
[2022-02-01] MEDS ORDERED: TRAMADOL HCL 50 MG TAB PO PRN (13:00)
[2022-02-01] MEDS ORDERED: BISMUTH SUBSALICYL 262MG/15ML-240 ML BTL PO PRN (13:26)
--- NOTE | 2022-02-01 13:44 | ECHO ---
HEIGHT: 5 ft 6 in WEIGHT: 184 lb 0 oz DATE OF STUDY: 02/01/[address]: Stacey Herrera MD 2-DIMENSIONAL: YES M.MODE: YES DOPPLER: YES COLOR FLOW: YES TDS: PORTABLE: YES DEFINITY: BUBBLE STUDY: DIAGNOSIS: CHEST PAIN, RULE OUT ACUTE CORNARY SYNDROME CARDIAC HISTORY: CATHERIZATION: NO SURGERY: NO PROSTHETIC VALVE: NO PACEMAKER: NO MEASUREMENTS (cm) DIASTOLIC (NORMALS) SYSTOLIC (NORMALS) IVSd 1.1 (0.6-1.2) LA Diam 3.4 (1.9-4.0) LVEF 65% LVIDd 4.3 (3.5-5.7) LVIDs 2.8 (2.0-3.5) %FS 36% LVPWd 1.2 (0.6-1.2) Ao Diam 2.4 (2.0-3.7) 2 DIMENSIONAL ASSESSMENT: RIGHT ATRIUM: NORMAL LEFT ATRIUM: NORMAL RIGHT VENTRICLE: NORMAL LEFT VENTRICLE: NORMAL TRICUSPID VALVE: NORMAL MITRAL VALVE: TRACE MITRAL REGURGITATION PULMONIC VALVE: NORMAL AORTIC VALVE: NORMAL PERICARDIAL EFFUSION: NONE AORTIC ROOT: NORMAL LEFT VENTRICULAR WALL MOTION: NORMAL DOPPLER/COLOR FLOW: MILD TRICUSPID REGURGITATION. TRACE MITRAL REGURGITATION. COMMENTS: NORMAL LEFT VENTRICULAR EJECTION FRACTION 60-65%. NORMAL WALL MOTION. MILD TRICUSPID REGURGITATION. MILD MITRAL REGURGITATION. TECHNOLOGIST: JOSE G ALICEA
--- NOTE | 2022-02-01 14:50 | CON ---
Date of Consultation: 02/01/2022 Reason For Consultation: Chest pain. History Of Present Illness: Ms. Mccray is a 76-year-old woman with history of diabetes, hypertens ion, breast cancer status post recent bilateral mastectomies. She normally sees Dr. Davis in [facility] for her cardiac care, but has never really had any cardiac history. Comes in with atypical chest p ain, left-sided, anterior. No nausea, vomiting, diaphoresis, PND, orthopnea, pedal edema, palpitatio n, or syncope. EKG is unremarkable. Chest x-ray is unremarkable. Troponin is negative. Her D-dime r was 1580. V/Q scan is pending. Past Medical History: As stated above. Allergies: SHE IS ALLERGIC TO PENICILLIN AND LISINOPRIL. Review of Systems: Negative. Social History: Negative. Family History: Negative. Medications: At home include metoprolol, Synthroid, memantine, Aricept, Lipitor, Norvasc, Lasix, ins ulin, and metformin. Physical Examination: Vital Signs: Stable. She was afebrile. She was in no acute distress. She was in sinus rhythm. HEENT: Negative. Neck: Supple with no bruit. Chest: Clear to auscultation and percussion. Cardiac: Revealed a regular rhythm and rate. No murmurs, gallops, or rubs. Abdomen: Benign. Extremities: Revealed no clubbing, cyanosis, or edema. Diagnostic Data: As stated earlier. Impression And Plan: Atypical chest pain, most likely musculoskeletal secondary to recent surgery, b ut the patient has hypertension, diabetes and dyslipidemia. Echocardiogram is pending. V/Q scan is pending. D-dimer is elevated. If all those are negative, she can see Dr. Davis and have an outpatie nt stress test down the road. Her other problems including hypertension well controlled, diabetes we ll controlled, status post bilateral mastectomies recently. She has dementia, hypothyroidism, and dy slipidemia, all of those are very well controlled. I will continue to follow her. NB/MODL Voice ID: [id number] Report ID: [id number]
[2022-02-01] MEDS ORDERED: GLUCAGON 1 MG/VIAL IM PRN (15:07)
[2022-02-01] MEDS ORDERED: D10W 250 ML BAG IV PRN (15:22)
[2022-02-01] MEDS ORDERED: HOME MED 1 EA UNK (Insulin Aspart [Novolog Flexpen] 100 UNIT/ML Insuln.Pen) SQ SCH (16:30)
[2022-02-01] MEDS: INSULIN LISPRO 100 UNIT/1 ML SQ SCH ×2 (16:30→21:05)
[2022-02-01] MEDS: INSULIN -REGULAR HUMAN 50 UNIT/0.5 ML ML SQ SCH ×2 (17:42→21:00)
[2022-02-01] MEDS: PANTOPRAZOLE 40MG TABLET PO SCH (17:43)
[2022-02-01] MEDS ORDERED: HOME MED 1 EA UNK (Insulin Detemir [Levemir Flextouch] 100 UNIT/ML Insuln.Pen) SQ SCH (21:00)
[2022-02-01] MEDS ORDERED: INSULIN GLARGINE 100 UNIT/ML SQ SCH (21:00)
[2022-02-01] MEDS ORDERED: HOME MED 1 EA UNK (Pregabalin [Lyrica] 100 MG Capsule) PO SCH (21:00)
[2022-02-01] MEDS: PREGABALIN 50 MG CAP PO SCH (21:04)
[2022-02-01] MEDS: SERTRALINE HCL 100 MG TAB PO SCH (21:04)
[2022-02-01] MEDS: GABAPENTIN 300 MG CAP PO SCH (21:04)
[2022-02-01] MEDS: MEMANTINE HCL 10 MG TABLET PO SCH (21:05)
[2022-02-01] MEDS ORDERED: MELATONIN 5 MG TABLET PO PRN (22:19)
[2022-02-02] MEDS: VANCOMYCIN 1.5 GM in NA CHLORIDE 0.9% 500 ML IVPB SCH (04:57)
[2022-02-02] MEDS: LEVOTHYROXINE SOD 0.1 MG TAB PO SCH (05:00)
[2022-02-02] MEDS: INSULIN -REGULAR HUMAN 50 UNIT/0.5 ML ML SQ SCH ×2 (07:30→11:27)
[2022-02-02] MEDS: INSULIN LISPRO 100 UNIT/1 ML SQ SCH ×2 (07:30→12:13)
[2022-02-02] MEDS: ASPIRIN EC 81 MG TAB PO SCH (08:13)
[2022-02-02] MEDS: ENOXAPARIN 40 MG/0.4 ML SQ SCH (08:13)
[2022-02-02] MEDS: PREGABALIN 50 MG CAP PO SCH ×2 (08:14→14:38)
[2022-02-02] MEDS: ATORVASTATIN 20 MG TAB PO SCH (08:14)
[2022-02-02] MEDS: PANTOPRAZOLE 40MG TABLET PO SCH (08:15)
[2022-02-02] MEDS: METOPROLOL TAR 50 MG TAB PO SCH (08:15)
[2022-02-02] MEDS: AMLODIPINE 5 MG TAB PO SCH (08:15)
[2022-02-02] MEDS: DONEPEZIL HCL 5 MG TAB PO SCH (08:15)
[2022-02-02] MEDS: GABAPENTIN 300 MG CAP PO SCH ×2 (08:15→14:38)
[2022-02-02] MEDS: ROPINIROLE HCL 0.25 MG TAB PO SCH (08:15)
[2022-02-02] MEDS ORDERED: HOME MED 1 EA UNK (Liraglutide [Victoza 2-Pak] 0.6 MG/0.1 ML Pen.Injctr) SQ SCH (09:00)
[2022-02-02] MEDS ORDERED: INSULIN DETEMIR 20 UNIT SQ SCH (09:00)
[2022-02-02] MEDS ORDERED: HOME MED 1 EA UNK (Linagliptin [Tradjenta] 5 MG Tablet) PO SCH (09:00)
[2022-02-02] MEDS ORDERED: HOME MED 1 EA UNK (Dexlansoprazole [Dexilant] 30 MG Cap.Dr.Bp) PO SCH (09:00)
[2022-02-02] MEDS ORDERED: INSULIN GLARGINE 100 UNIT/ML SQ SCH (09:00)
[2022-02-02] MEDS ORDERED: NA CHLORIDE 0.9% 1,000 ML ONE (09:33)
[2022-02-02] MEDS ORDERED: BUPIVACAINE 0.5% Inj,MDV 50 mL VIAL ONE (10:14)
--- NOTE | 2022-02-02 11:23 | P.OP ---
Date of Service: 02/02/22 Preop diagnosis: Symptomatic seroma left anterior chest Postop diagnosis: Same Procedure performed: Incision and drainage of left anterior chest seroma Surgeon: Melvin Carney MD In Store Banker: Hiro AUSTIN Estimated blood loss: Minimal Specimen: Culture and sensitivity of the seroma fluid Findings: As above Anesthesia: General Complications: None Drains: KRISTINE #10 flat Fluids and blood products: Nonapplicable Disposition: Recovery room Operative note: Patient brought to the OR and placed in the supine position. General anesthesia begun and then patient prepped and draped in usual sterile fashion. Marcaine 0.5% infiltrated locally. Then a 3 cm incision was made over the mastectomy scar laterally. Deep to the subcutaneous tissue, a large seroma pocket was identified. Seroma fluid was aspirated and cultures were done. Loculations were broken. The cavity was irrigated thoroughly. [place] drain 10 flat was placed in the cavity and secured with 3-0 nylon. Cautery was utilized to control bleeding. 3-0 chromic was used to reapproximate subcutaneous tissue and closed skin. Sterile dressing applied. Patient awakened taken to recovery room in good general condition. CC:
[2022-02-02] MEDS ORDERED: MIDAZOLAM HCL 2 MG/2 ML INJ ONE (11:26)
[2022-02-02] MEDS ORDERED: FENTANYL CITR 100 MCG/2 ML ONE (11:26)
[2022-02-02] MEDS ORDERED: propofoL 200 MG/20 ML VIAL IV ONE (11:26)
[2022-02-02] MEDS ORDERED: Mastisol Adhesive Liq ONE (11:26)
[2022-02-02] MEDS ORDERED: EPHEDRINE SULF 50 MG/ML VIAL ONE (11:26)
[2022-02-02] MEDS ORDERED: LIDOCAINE 1% MPF 30 ML VIAL ONE (11:26)
[2022-02-02] MEDS: HYDROMORPHONE HCL 1 MG/ML INJ ONE ×3 (11:30→11:40)
[2022-02-02] MEDS ORDERED: ACETAMINOPHEN 500 MG TAB PO PRN ×2 (11:34)
[2022-02-02] MEDS ORDERED: HYDROMORPHONE HCL 1 MG/ML INJ IV PRN (11:37)
[2022-02-02 11:46] VITALS: O2SAT 96
[2022-02-02 13:39] VITALS: BP 104/55; TEMP 96.8
--- NOTE | 2022-02-02 15:12 | P.DS ---
Admission Date: 01/31/22 Discharge Date: 02/02/22 Disposition: ROUTINE DISCHARGE Discharge Condition: GOOD Reason for Admission: Chest pain rule out acute coronary syndrome Consultations: General surgery. Cardiology. Brief History of Present Illness: Patient is a 76-year-old female who came into the hospital with chest discomfort. Patient had a mastectomy performed few weeks ago. She has been doing well since the mastectomy, but she did develop a little bit of swelling. She states she is having some tenderness in the chest so she came into the hospital for further evaluation. She is from [place], but she gets most of her medical care at our facility. Patient was going to get a CT PE protocol but her IV blew out. She will get a VQ scan in the morning. She will be ruled out for acute coronary syndrome. We will get general surgery consultation in the morning as well. Hospital Course: She was admitted for inpatient care and for surgeon evaluation and cardiology evaluation to rule out ACS. VQ scan done to rule out PE was negative and patient did not have any significant abnormality. She was evaluated by surgeon for suspected seroma in the chest wall postsurgical intervention and she was taken to the OR after cardiology cleared her. She had drainage of seroma without any significant finding however surgeon recommended antibiotic for 10- day duration. She will be discharged today to follow-up with surgeon as scheduled and also her primary care doctor scheduled. Vital Signs/Physical Exam: Temp Pulse Resp BP Pulse Ox 96.8 F 59 18 104/55 L 97 02/02/22 12:00 02/02/22 12:00 02/02/22 12:00 02/02/22 12:00 02/02/22 12:00 General: Alert, Oriented x3 HEENT: Atraumatic, Normocephalic Neck: Supple Respiratory: Normal air movement Cardiovascular: Regular rate/rhythm, Normal S1 S2 Gastrointestinal: Soft and benign Musculoskeletal: No swelling Neurological: Normal speech Laboratory Data at Discharge: WBC 5.2 K/uL (4.3-10.9) D 02/01/22 05:50 Hgb 12.0 g/dL (12.0-15.0) 02/01/22 05:50 Hct 34.8 % (36.0-45.0) L 02/01/22 05:50 Plt Count 206 K/uL (152-406) 02/01/22 05:50 PT 11.8 SECONDS (9.5-12.5) 01/31/22 13:02 INR 1.07 01/31/22 13:02 Sodium 138 mmol/L (136-145) 02/01/22 05:50 Potassium 3.9 mmol/L (3.5-5.1) 02/01/22 05:50 BUN 13 mg/dL (7-18) 02/01/22 05:50 Creatinine 0.82 mg/dL (0.55-1.3) 02/01/22 05:50 Glucose 129 mg/dL (74-106) H 02/01/22 05:50 Magnesium 2.0 mg/dL (1.8-2.4) 01/31/22 13:02 Total Bilirubin 0.3 mg/dL (0.2-1.0) 02/01/22 05:50 AST 11 U/L (15-37) L 02/01/22 05:50 ALT 22 U/L (12-78) 02/01/22 05:50 Alkaline Phosphatase 64 U/L (45-117) 02/01/22 05:50 Triglycerides 167 mg/dL (<150) H 02/01/22 05:50 Cholesterol 152 mg/dL (<200) 02/01/22 05:50 HDL Cholesterol 55 mg/dL (40-60) 02/01/22 05:50 Cholesterol/HDL Ratio 2.76 02/01/22 05:50 Home Medications: Amlodipine Besylate 5 mg PO DAILY 12/30/21 Atorvastatin Calcium [Lipitor*] 20 mg PO DAILY 12/30/21 Dexlansoprazole [Dexilant] 60 mg PO DAILY 12/30/21 Donepezil HCl [Aricept] 10 mg PO DAILY 12/30/21 Furosemide [Lasix*] 40 mg PO DAILY PRN 12/30/21 Gabapentin 300 mg PO TID 12/30/21 Insulin Aspart [Novolog Flexpen] 15 unit SQ ACHS 12/30/21 Insulin Detemir [Levemir Flextouch] 45 unit SQ BID 12/30/21 Levothyroxine [Synthroid*] 100 mcg PO [id number] 12/30/21 Linagliptin [Tradjenta] 5 mg PO DAILY 12/30/21 Liraglutide [Victoza 2-Yury] 1.8 mg SQ DAILY 12/30/21 Memantine HCl 10 mg PO BEDTIME 12/30/21 Metformin ER [Glucophage ER*] 500 mg PO DAILY 12/30/21 Metoprolol Tartrate [Lopressor*] 50 mg PO BID 12/30/21 Pregabalin [Lyrica] 100 mg PO TID 12/30/21 Sertraline [Zoloft*] 100 mg PO BEDTIME 12/30/21 Tizanidine HCl [Zanaflex] 4 mg PO DAILY 12/30/21 Tramadol HCl [Ultram] 100 mg PO BID PRN 12/30/21 Alendronate Sodium [Fosamax] 70 mg PO EVERY 7TH DAY 02/01/22 Ropinirole HCl [Requip*] 0.25 mg PO BID 02/01/22 Cephalexin [Keflex] 500 mg PO Q6HR #40 cap 02/02/22 Codeine/APAP [Tylenol W/Codeine #3 tab] 1 tab PO TID PRN #15 tab 02/02/22 New Medications: Cephalexin [Keflex] 500 mg PO Q6HR #40 cap Codeine/APAP [Tylenol W/Codeine #3 tab] 1 tab PO TID PRN #15 tab PRN Reason: Pain Scale 8-10 (Severe) Physician Discharge Instructions: Keep dressing clean and dry Sponge bathe only Record KRISTINE output every 12 hour Bring record to office Strip tubing as needed Keflex 500 mg p.o. every 6 Patient has pain medications at home Diet: AHA Activity: No lifting more than 10 lbs Followup: Melvin Carney MD [ACTIVE - CAN ADMIT] - 1 Week (Call to schedule appointment)
--- NOTE | 2022-02-04 13:27 | PN ---
Date of Progress Note: 02/02/2022 The patient with seen for atypical chest pain and shortness of breath. Her symptoms have improved. Vital signs remained stable and afebrile. Echocardiogram which was done today was normal. V/Q scan was normal. We will sign off her case for now. We will see the patient as an outpatient if the symp toms persist. Consider an outpatient stress test. ROSI/NEGRITO Voice ID: [id number] Report ID: [id number]
== END 2022-02-02 14:58 | disposition home health service (06) ==
LOC: ER 12:04 → ERHOLD 15:18 → 2ND 19:22
PROVIDERS: ADMIT Hospitalist; ATTEND Internal Medicine Nephrology
PROC: 0W980ZX Drainage of Chest Wall, Open Approach, Diagnostic (ICD-10-PCS; principal; 2022-01-31)
DX: M96.843 Postprocedural seroma of a musculoskeletal structure following other procedure (principal); Y83.8 Other surgical procedures as the cause of abnormal reaction of the patient, or of later complication, without mention of misadventure at the time of the procedure; E11.40 Type 2 diabetes mellitus with diabetic neuropathy, unspecified; I10 Essential (primary) hypertension; C50.919 Malignant neoplasm of unspecified site of unspecified female breast; J44.9 Chronic obstructive pulmonary disease, unspecified; G30.9 Alzheimer's disease, unspecified; F02.80 Dementia in other diseases classified elsewhere, unspecified severity, without behavioral disturbance, psychotic disturbance, mood disturbance, and anxiety; E03.9 Hypothyroidism, unspecified; E78.5 Hyperlipidemia, unspecified; G47.30 Sleep apnea, unspecified; Z90.13 Acquired absence of bilateral breasts and nipples; Z90.710 Acquired absence of both cervix and uterus; Z87.891 Personal history of nicotine dependence; Z79.84 Long term (current) use of oral hypoglycemic drugs; Z79.4 Long term (current) use of insulin; Z79.899 Other long term (current) drug therapy; Z88.0 Allergy status to penicillin; Z88.8 Allergy status to other drugs, medicaments and biological substances; Z20.822 Contact with and (suspected) exposure to COVID-19
CPT/HCPCS: 93005; 93306; 87070; 85025 ×2; 80048; 36415; 83735; 87205; 85610; 80061; 82947 ×7; 85379; 80076; 87075; 84484 ×3; 80053; 83880; 71250; 71045; 78582; 96374; 99285; 10140; U0003; J2704; J1815 ×4; J1650; J2250; J3010; J3370 ×2; J2270 ×2; J1170; G0378 ×5; J7040 ×2; J7030; A9558; A9540